=== PATIENT | female | born 1930 | race Caucasian/White ===

== ENCOUNTER 2017-04-25 08:55 | Inpatient (IN) ==
[2017-04-25] MEDS ORDERED: ACETAMINOPHEN 325 MG TABLET PO ONE (09:29)
[2017-04-25] MEDS ORDERED: ONDANSETRON 4 MG/2 ML VIAL IV ONE ×2 (09:29→10:08)
[2017-04-25] MEDS ORDERED: LACTATED RINGERS 1,000 ML IV ONE ×2 (09:30→11:34)
--- NOTE | 2017-04-25 09:37 | Emergency Department Note ---
Female Urogenital HPI - General Chief complaint: Urogenital-Female Stated complaint: Urinary frequency, nausea Time Seen by Provider: 04/25/17 09:22 Source: patient, family Mode of arrival: wheelchair - History of Present Illness HPI Narrative: Patient complains of fever, weakness, urinary symptoms, a little bit of nausea, generally not feeling well. She has had some nausea but no vomiting, denies any diarrhea, denies any abdominal pain or flank pain, she's had a history of urinary tract infections for last 2 years, has been on preventative antibiotics off and on, seems to think it was Cipro, but he was not sure, she's also been on Vesicare and then they switched to generic medication. Has had regular [employer] checkups on a yearly basis, denies abdominal pain but has had some issues with yeast infections, denies vaginal discharge, no diarrhea, no chest pain, no shortness of breath, she denies headache but has had some generalized body aches MD Complaint: dysuria - Related Data Home Medications Medication Instructions Recorded Confirmed cranberry extract 200 mg capsule 200 mg PO QDAY 03/11/17 04/08/17 vitamins A,C,H-irdn-kteqxe 14,320 cap PO QDAY cap 03/11/17 04/08/17 unit-226 mg-200 unit capsule Previous Rx's Medication Instructions Recorded lorazepam 0.5 mg tablet 0.5 mg PO BID PRN #60 tab 10/28/16 levothyroxine 125 mcg tablet 125 mcg PO DAILY #90 tab 01/26/17 simvastatin 20 mg tablet 20 mg PO HS #90 tab 01/26/17 losartan 100 mg tablet 100 mg PO DAILY #90 tab 01/29/17 tolterodine ER 4 mg 4 mg PO QHS #10 cap 03/02/17 capsule,extended release 24 hr cholecalciferol (vitamin D3) 2,000 5,000 unit PO QDAY #90 cap 03/11/17 unit capsule conjugated estrogens 0.625 mg/gram 0.625 mg TOPICAL .QOD #30 g 03/11/17 vaginal cream solifenacin 10 mg tablet 10 mg PO QDAY #30 tab 04/08/17 oxybutynin chloride ER 10 mg 10 mg PO QDAY #30 tab 04/14/17 tablet,extended release 24 hr E2/E3-20/80 1mg/g 0.5 g TOPICAL .QOD #60 g 04/20/17 Allergies Allergy/AdvReac Type Severity Reaction Status Date / Time hydrocodone AdvReac Unknown Nausea Verified 04/25/17 09:02 lisinopril AdvReac Unknown Cough Verified 04/25/17 09:02 pravastatin [From Pravachol] AdvReac Unknown Cramping Verified 04/25/17 09:02 of the Muscles Review of Systems All systems ED: reviewed and negative except as stated. Constitutional: Reports: fever, chills ENT ED: Reports: other (hearing aids). Denies: ear pain Cardiovascular: Reports: dyspnea on exertion. Denies: chest pain, palpitations Respiratory: Denies: cough, hemoptysis Gastrointestinal: Reports: other (History of large abdominal hernia). Denies: abdominal pain Past Medical History - Past Medical History Source: nursing notes reviewed Medical history: Reports: arthritis, diabetes, hyperlipidemia, hypertension, osteoporosis, renal disease, thyroid disease, other (recurrent sinusitis & UTIs) Surgical history ED: Reports: cataract, cholecystectomy, hysterectomy, tonsillectomy, other (mohs on nose) Family history: Reports: no significant family history - Social History smoking status: Never smoker Alcohol use: Reports: None Drug use: Reports: none Physical Exam Limitations: no limitations General appearance: alert, lethargic Head: atraumatic, normocephalic Eye: Present: normal appearance, PERRL, EOMI. Absent: conjunctival injection, nystagmus, periorbital swelling ENT: normal exam, normal oropharynx, mucous membranes moist, normal external ear exam, other (Hearing aids bilaterally) Neck: Present: normal inspection, full ROM, trachea midline Chest: Present: normal inspection, symmetric chest wall rise. Absent: tenderness Respiratory: Present: normal lung sounds bilaterally. Absent: wheezes Cardiovascular: Present: regular rate, normal heart sounds Abdominal: Present: soft, mass, hernia, other (Large hernia right upper quadrant ). Absent: distention, tenderness Rectal: Present: deferred Extremities: Present: normal inspection, full ROM. Absent: tenderness Back: Present: normal inspection, full ROM. Absent: CVA tenderness (R), CVA tenderness (L), muscle spasm Neurological: Present: alert, oriented X3, CN II-XII intact, other (generally weak in all fours). Absent: motor sensory deficit Psychiatric: Present: normal affect Skin: Present: warm, dry, intact. Absent: rash Course Vital Signs Temperature 100.9 F H 04/25/17 08:57 Pulse Rate 92 H 04/25/17 08:57 Pulse Oximetry (%) 96 04/25/17 08:57 Temperature 101.0 F H 04/25/17 10:25 Pulse Rate 53 L 04/25/17 11:55 Respiratory Rate 16 04/25/17 11:55 Blood Pressure 140/53 04/25/17 11:55 Pulse Oximetry (%) 98 04/25/17 11:55 Urogenital-Female - MDM Narrative Medical decision making narrative: Final impression is urinary tract infection, complicated. Associated with general weakness and history of recurrent infections. Plan is IV fluids, observation. We did give her Tylenol and the fever actually went up to 101. We gave her Zofran twice for nausea. Some improvement with that. I spoke with Dr. Ford regarding admission and he will be down to see her. - Lab Data Result diagrams: 04/25/17 09:31 04/25/17 09:31 Lab Results 04/25/17 04/25/17 04/25/17 Range/Units 09:31 09:31 09:31 WBC 6.2 (4.5-11.0) K/mcL RBC 4.08 (4.00-5.20) M/mcL Hgb 12.5 (12.0-15.0) g/dL Hct 36.5 (36.0-48.0) % MCV 89.5 (80.0-100.0) fL MCH 30.6 (26.0-34.0) pg MCHC 34.2 (31.0-36.0) g/dL RDW 14.7 H (11.5-14.5) % Plt Count 174 (140-440) K/mcL MPV 7.5 (7.4-10.4) fL Total Counted 100 Seg Neutrophils % 64 (38-78) % Band Neutrophils % 4 (0-10) % Lymphocytes % 15 (15-49) % Monocytes % (Manual) 15 H (1-12) % Metamyelocytes % 2 H (0-0) % Platelet Estimate Normal (NORMAL) RBC Morphology Normal (NORMAL) VBG Lactic Acid 1.9 (0.5-2.2) mmol/L Sodium 136 (133-145) mmol/L Potassium 4.0 (3.3-5.1) mmol/L Chloride 100 (96-108) mmol/L Carbon Dioxide 20 L (22-30) mmol/L Anion Gap 16.0 (8-16) BUN 19 (8-23) mg/dl Creatinine 1.2 H (0.6-1.1) mg/dl GFR Calculation 41 Glucose 169 H (70-105) mg/dL Calcium 8.8 (8.6-10.4) mg/dl Total Bilirubin 0.5 (0.0-1.0) mg/dL AST 15 (0-37) U/l ALT 10 (0-40) U/l Alkaline Phosphatase 70 (39-117) U/L C-Reactive Protein (0.0-0.8) mg/dl Total Protein 7.1 (5.9-8.4) gm/dL Albumin 4.0 (3.2-5.2) gm/dL Globulin 3.1 (2.2-3.7) gm/dL Albumin/Globulin Ratio 1.3 (1.0-2.3) Urine Color Urine Appearance Urine pH (5.0-9.0) Ur Specific [place] (1.000-1.035) Urine Protein (NEG) mg/dL Urine Glucose (UA) (NEG) mg/dL Urine Ketones (NEG) mg/dL Urine Occult Blood (<0.03) mg/dL Urine Nitrate (NEG) Urine Bilirubin (NEG) mg/dL Urine Urobilinogen (NEG) mg/dL Ur Leukocyte Esterase (NEG) /uL Urine RBC (0-1) /hpf Urine WBC (0-4) /hpf Ur Squamous Epith Cells (0-4) /hpf Urine Bacteria (0) /hpf Urine Mucus (0) /hpf 04/25/17 04/25/17 Range/Units 09:31 09:32 WBC (4.5-11.0) K/mcL RBC (4.00-5.20) M/mcL Hgb (12.0-15.0) g/dL Hct (36.0-48.0) % MCV (80.0-100.0) fL MCH (26.0-34.0) pg MCHC (31.0-36.0) g/dL RDW (11.5-14.5) % Plt Count (140-440) K/mcL MPV (7.4-10.4) fL Total Counted Seg Neutrophils % (38-78) % Band Neutrophils % (0-10) % Lymphocytes % (15-49) % Monocytes % (Manual) (1-12) % Metamyelocytes % (0-0) % Platelet Estimate (NORMAL) RBC Morphology (NORMAL) VBG Lactic Acid (0.5-2.2) mmol/L Sodium (133-145) mmol/L Potassium (3.3-5.1) mmol/L Chloride (96-108) mmol/L Carbon Dioxide (22-30) mmol/L Anion Gap (8-16) BUN (8-23) mg/dl Creatinine (0.6-1.1) mg/dl GFR Calculation Glucose (70-105) mg/dL Calcium (8.6-10.4) mg/dl Total Bilirubin (0.0-1.0) mg/dL AST (0-37) U/l ALT (0-40) U/l Alkaline Phosphatase (39-117) U/L C-Reactive Protein 7.0 H (0.0-0.8) mg/dl Total Protein (5.9-8.4) gm/dL Albumin (3.2-5.2) gm/dL Globulin (2.2-3.7) gm/dL Albumin/Globulin Ratio (1.0-2.3) Urine Color Yellow Urine Appearance Cloudy Urine pH 5.0 (5.0-9.0) Ur Specific [place] 1.014 (1.000-1.035) Urine Protein 100 A (NEG) mg/dL Urine Glucose (UA) Negative (NEG) mg/dL Urine Ketones 5/tr A (NEG) mg/dL Urine Occult Blood >=1.0 A (<0.03) mg/dL Urine Nitrate Pos A (NEG) Urine Bilirubin Neg (NEG) mg/dL Urine Urobilinogen Neg (NEG) mg/dL Ur Leukocyte Esterase 500 A (NEG) /uL Urine RBC > 182 H (0-1) /hpf Urine WBC > 182 H (0-4) /hpf Ur Squamous Epith Cells 9 H (0-4) /hpf Urine Bacteria Many A (0) /hpf Urine Mucus Mod (0) /hpf Disposition Pt seen by TELE TECH/PA only: No Clinical Impression: Urinary tract infection Disposition: Xfer As Outpt/Obs ([facility]) Condition: Fair Referrals: Emmanuel Ulrich MD [Primary Care Provider] -
[2017-04-25] MEDS ORDERED: cefTRIAXone 1 GM VIAL IV ONE (09:40)
[2017-04-25 10:14] LABS: Mean Cell Volume 89.5 fL (80.0-100.0); Mean Corpuscular HGB Conc 34.2 g/dL (31.0-36.0); Mean Corpuscular Hemoglobin 30.6 pg (26.0-34.0); Platelet Count 174 K/mcL (140-440); RBC 4.08 M/mcL (4.00-5.20); Red Cell Distribution Width 14.7 % (11.5-14.5)
[2017-04-25 10:16] LABS: Appearance,Urine CLOUDY; Bacteria,Urine MANY /hpf (0); Bilirubin,Urine NEG (NEG); Color,Urine YELLOW; Glucose,Urine (UA) NEGATIVE (NEG); Leukocyte Esterase,Urine 500 /uL (NEG); Mucus,Urine MOD /hpf (0); Nitrate,Urine POS (NEG); Protein,Urine 100 mg/dL (NEG); Specific Gravity,Urine 1.014 (1.000-1.035); Urine Blood >=1.0 mg/dL (<0.03); Urine RBC > 182 /hpf (0-1); Urine Squamous Epithelial Cell 9 /hpf (0-4); Urine WBC > 182 /hpf (0-4); Urobilinogen,Urine NEG (NEG)
[2017-04-25 10:28] LABS: ALT/SGPT 10 U/l (0-40); Albumin/Globulin Ratio 1.3 (1.0-2.3); Alkaline Phosphatase 70 U/L (39-117); Blood Urea Nitrogen 19 mg/dl (8-23)
[2017-04-25 10:39] LABS: Band Neutrophils % 4 % (0-10); Lymphocytes % 15 % (15-49); Metamyelocytes % 2 % (0-0); Monocytes % (Manual) 15 % (1-12); Platelet Estimate NORMAL (NORMAL); RBC Morphology NORMAL (NORMAL); Segmented Neutrophils % 64 % (38-78)
[2017-04-25] MEDS ORDERED: IBUPROFEN 600 MG TABLET PO ONE (12:32)
--- NOTE | 2017-04-25 12:56 | Internal Med History&Physical ---
Medical - H&P: HPI Patient information: Note initiated : 04/25/17 at 12:47 pm Service Date, if different from initiated Date: [] Patient: Lela Pressley a 86 y/o F admitted on for Urinary frequency, nausea. Chief Complaint: [] History of present illness: Ms. Pressley is a 86 year old Female with h/o overactive bladder, who has been having trouble with her bladder symptoms for over 2 yrs presents to the ER today after not feeling well since yesterday. According to the patient/ patients the patient has not been doing well from the bladder prospective x 2 yrs, she has tried various medications, and also has been following up with Urology. Over the last few months, she has tried multiple medications for her overactive bladder, anticholinergic/ estrogen to see if that helps. She has to go to the bathroom quite frequently. The patient since yesterday notes she has not been feeling so well, her checked her temperature and it as 101.9 last night. This am she felt as if she was going to ? because of her illness and therefore presented to the ER. In the ER her son, daughter and were present. In ther ER she was noted to be febrile, her labs normal, with mild CKD, the patient otherwise had normal wbc, normal lactic acid, She was dizzy on ambulation and one episode of nausea. Her ua was suggestive of infection, and she remained febrile and weak, She was therefore admitted to the hospital for further management, Blood cx, urine cx, sent, rocephin given The patient notes she has not had any imaging of the bladder or pelvis over last 2 years, she had no headache, no runny nose or watery eyes, no sick contact ,s she had some nausea, no vomiting, no chest pain, no shortness of breath. She has chr edema. She denies any joint, or skin issues. The patient urology notes reviewed, her previous urine cultures have been clear , and her urine analysis done point of care in [facility] also has been normal. In the ER the patient HR was noted to be low in the 50's, but was sinus on tele monitor, she had new oxygen requirement, while sleeping she desatruated to 88% which came up quickly as she was given some oxygen She wishes to be full code All systems: reviewed and no additional remarkable complaints except as stated ( as per HPI) Medical - H&P: [facility] Medical history: Medical History (Last Reviewed 04/08/17 @ 08:45 by SOLEDAD Emmanuel) Acute sinusitis (Acute) Chronic kidney disease, stage III (moderate) (Chronic) Frequency of urination (Chronic) Dysuria (Chronic) Vaginal dryness (Chronic) Urinary tract infection (Chronic) Sinusitis (Chronic) Encounter for removal of sutures (Chronic) Muscle strain of left lower extremity (Chronic) Metabolic Syndrome X (Chronic) Sinusitis (Resolved) Knee strain (Chronic) Sinusitis (Resolved) Right foot strain (Chronic) Diabetes mellitus type 2 in obese (Chronic) Diabetes mellitus type 2 in nonobese (Chronic) Vitreous degeneration (Chronic 03/08/14) Vitamin D deficiency (Chronic) Candidal vaginitis (Chronic 11/10/13) Pseudophakia (Chronic) Peripheral vascular disease (Chronic) Osteoporosis (Chronic 07/26/14) Panic disorder (Chronic 06/09/12) Osteoarthritis (Chronic) Osteopenia (Chronic 03/21/13) Onychomycosis (Chronic 07/26/14) Obesity (Chronic) Personal history of malignant melanoma of skin (Chronic) Macular degeneration (Chronic) Keratoconjunctivitis sicca, not specified as Sjogren's (Chronic) Hypothyroidism (Chronic) Dyslipidemia (Chronic) Hypercalcemia (Chronic) Essential hypertension (Chronic) Ventral hernia (Chronic) Gout (Chronic) Dysmetabolic syndrome X (Chronic) 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) Costochondritis (Chronic 09/16/12) Corneal dystrophy (Chronic) Chronic kidney disease, stage III (moderate) (Chronic) Blepharitis (Chronic 09/11/14) Basal cell carcinoma of skin of other parts of face (Chronic) 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) Anxiety (Chronic) Anemia (Chronic) Maxillary sinusitis, acute (Resolved) Sinusitis (Resolved) Contusion (Resolved) Fracture of fifth metatarsal bone of left foot (Resolved) Acute sinusitis (Resolved 09/12/14) Surgical history: Past Surgical History (Last Reviewed 04/08/17 @ 08:46 by SOLEDAD Emmanuel) History of cataract surgery (Resolved) History of cholecystectomy (Resolved) History of colonoscopy (Resolved) History of esophagogastroduodenoscopy (EGD) (Resolved) History of hysterectomy (Resolved) History of salpingo-oophorectomy (Resolved) History of tonsillectomy (Resolved) Status post Mohs surgery for basal cell carcinoma (Resolved 06/02/16) Pertinent family history: Family History (Last Reviewed 04/08/17 @ 08:46 by SOLEDAD Emmanuel) Father Coronary artery disease Other Breast cancer Diabetes Kidney stones Medical - H&P: Meds Home Medications Medication Instructions Recorded Confirmed Type Biest 1 mg TD 3XW 04/25/17 History LORazepam [Ativan] 0.5 mg PO BID PRN 04/25/17 04/25/17 History Levothyroxine [Synthroid] 125 mcg PO DAILY 04/25/17 04/25/17 History Losartan [Cozaar] 100 mg PO DAILY 04/25/17 04/25/17 History Oxybutynin Chloride [Oxybutynin 10 mg PO DAILY 04/25/17 04/25/17 History Chloride ER] Simvastatin [Zocor] 20 mg PO HS 04/25/17 04/25/17 History Allergies Allergy/AdvReac Type Severity Reaction Status Date / Time hydrocodone AdvReac Unknown Nausea Verified 04/25/17 09:02 lisinopril AdvReac Unknown Cough Verified 04/25/17 09:02 pravastatin [From Pravachol] AdvReac Unknown Cramping Verified 04/25/17 09:02 of the Muscles Medical - H&P: Exam - Constitutional Vitals: Temp Pulse Resp BP Pulse Ox 101.0 F H 55 L 18 134/51 98 04/25/17 10:25 04/25/17 12:01 04/25/17 12:01 04/25/17 12:01 04/25/17 12:01 Exam: GENERAL: The patient is a well-developed, well-nourished in no apparent distress. Is alert and oriented x3. VITAL SIGNS: Reviewed and as noted elsewhere. HEENT: Head is normocephalic and atraumatic. Extraocular muscles are intact. Pupils are equal, round, and reactive to light. Nares appeared normal. Mouth appears any without lesions. Mucous membranes are moist. NECK: Normal to inspection, Supple, No lymphadenopathy or thyromegaly. LUNGS: Air entry equal on both sides, no wheezing, crackles or rhonchi noted. No accessory muscles of respiration HEART: Regular rate and rhythm normal, S1 and S2 heard, no Gallop, S3 or Rub Noted, No Gross murmur heard. ABDOMEN: Soft, nontender, and nondistended. Positive bowel sounds. No hepatosplenomegaly was noted. No flank tenderness, right upper quadrant swelling , soft non tender, noted, not easily reducible. EXTREMITIES: No cyanosis, clubbing, rash, , edema ++ noted. NEUROLOGIC: Cranial nerves II through XII are grossly intact. Motor and Sensory System Grossly Intact PSYCHIATRIC: Normal affect, Normal Mood. Appropriate Behavior. SKIN: No ulceration or wounds noted, No jaundice, No rash noted. Medical - H&P: Reslt - Labs CBC & Chem 7: 04/25/17 09:31 04/25/17 09:31 Labs: Short CBC 04/25/17 Range/Units 09:31 WBC 6.2 (4.5-11.0) K/mcL Hgb 12.5 (12.0-15.0) g/dL Hct 36.5 (36.0-48.0) % Plt Count 174 (140-440) K/mcL BMP 04/25/17 09:31 Sodium 136 Potassium 4.0 Chloride 100 Carbon Dioxide 20 L BUN 19 Creatinine 1.2 H Glucose 169 H Calcium 8.8 Liver Function 04/25/17 Range/Units 09:31 Total Bilirubin 0.5 (0.0-1.0) mg/dL AST 15 (0-37) U/l ALT 10 (0-40) U/l Alkaline Phosphatase 70 (39-117) U/L Albumin 4.0 (3.2-5.2) gm/dL Urine 04/25/17 Range/Units 09:32 Urine Color Yellow Urine Appearance Cloudy Urine pH 5.0 (5.0-9.0) Ur Specific [place] 1.014 (1.000-1.035) Urine Protein 100 A (NEG) mg/dL Urine Glucose (UA) Negative (NEG) mg/dL Medical - H&P: A/P - Narrative A/P Narrative: A/P Urinary tract infection: IV rocephin for now, previous cultures 2 yrs ago has enterococcus, but rest have been clear, will await microbiology Fever: Due to UTI, tyenol given, monitor. Overactive Bladder: The patient has been following with urology, on anti cholinergics as well as estrogen for atrophic vaginitis. continue same, In light of recurrent symptoms which are difficult to control, h/o previous GI Surgeries, as well as ruq mass/ non reducible hernia, will get CT Abdomen and pelvis to see if there is any other underlying pathology to explain the patients symptoms. HTN: BP stable, no e/o sepsis or septic shock, normal bp, normal lactate, resume home bp medications Right upper quadrant swelling: hernia, non tender, secondary to Gall bladder surgery? monitor. Hypothyroidism: on levothyroxine, check tsh in light of low hr despite pt having fever, Hypoxia: check chest x ray, bnp. CKD stage 3, creat is 1.2, which is at baseline. Pt is receiving IV fluids prior to CT Scan, will continue with fluids if patient x ray is neg for chf. DVT hep sq Regular diet Full code Social History - Social History household members: spouse housing: house lives independently: Yes marital status: occupation: self employed - Tobacco smoking status: Never smoker - Alcohol alcohol intake frequency: does not drink - Substance use substance use type: does not use
[2017-04-25] MEDS ORDERED: IOPAMIDOL 100 ML BOTTLE IJ ONE (13:08)
[2017-04-25] MEDS ORDERED: oxyCODONE HCL 5 MG TABLET PO PRN (13:20)
[2017-04-25] MEDS ORDERED: ALBUTEROL SULFATE 2.5 MG/3 ML NEBULIZER NEB PRN (13:20)
[2017-04-25] MEDS ORDERED: ACETAMINOPHEN 325 MG TABLET PO PRN (13:20)
[2017-04-25] MEDS ORDERED: LORazepam 0.5 MG TABLET PO PRN ×2 (13:20→14:45)
[2017-04-25] MEDS ORDERED: traZODone HCL 50 MG TABLET PO PRN (13:20)
[2017-04-25] MEDS ORDERED: NALOXONE HCL 0.4 MG/ML VIAL IV PRN (13:20)
[2017-04-25] MEDS ORDERED: ONDANSETRON 4 MG/2 ML VIAL IV PRN (13:20)
[2017-04-25] MEDS: 0.9 % SODIUM CHLORIDE 10 ML SYRINGE IV SCH ×2 (14:25→20:35)
--- NOTE | 2017-04-25 17:29 | Cat Scan Report ---
CLINICAL INFORMATION: Abdominal pain, nausea and vomiting COMPARISON: Abdominal MRI from 02/22/2010. TECHNIQUE: Following enteric contrast, 80 cc of Isovue-300 were injected intravenously, and 60 seconds later, 0.625 mm helical slices were obtained from the mid heart through the subtrochanteric regions. Following reconstruction, 2.5 mm sagittal, coronal and axial reformatted images were processed and reviewed at bone, lung and soft tissue windows. Five minutes later, 0.625 mm helical slices were obtained from the mid heart through the kidneys and viewed at soft tissue windows.The exam was performed using radiation dose optimization techniques including, but not limited to, automated exposure control, adjustment of the mA and/or kV according to patient size and use of iterative reconstruction technique. FINDINGS: Lung bases show chronic bronchitis and scattered scarring. No effusion. The heart is mildly enlarged with extremely heavy calcification in the region of the mitral valve. Small hiatal hernia again noted. Images through the abdomen show mild fatty change within the liver with more concentrated fat in the christina hepatis region. The gallbladder is surgically absent. There is a 3.8 cm periampullary diverticula which extrinsically compresses the intrapancreatic common bile duct resulting in mild dilatation of common bile duct 10 mm. No evidence of stone in the duct. Pancreas is unremarkable. Both adrenal glands, spleen, right kidney and aorta , including aortic branches, are normal in size, configuration and attenuation without focal lesion. There is mild left hydronephrosis ostensibly due to a UPJ stricture. There is also mild soft tissue stranding in the perirenal soft tissues. The transitional epithelium in the left upper collecting system is moderately thickened compatible with pyelonephritis. No stones are identified. The ureter, distal to the UPJ, is normal in caliber. The right upper collecting system and ureter are normal. There is moderate diffuse thickening of the urinary bladder wall with inflammation in the perivesical soft tissues suggesting cystitis. Small of free fluid noted in the deep true pelvis. Multiple sigmoid diverticuli are noted. There is a 22 mm sessile lipoma in the mid transverse colon, but the remaining colon is unremarkable. Appendix is normal. Small bowel and stomach are grossly normal. Bone windows show only degenerative changes in the lumbar spine. There is a 10 cm ventral hernia in the epigastric region of the abdominal wall consisting only mesenteric fat. A small 18 mm periumbilical hernia also consists of mesenteric fat. The appear to be stable from the old study IMPRESSION: 1. Mild left hydronephrosis ostensibly due to a UPJ stricture as a result of fibrosis or inflammation in the perirenal soft tissues. The transitional epithelium of the left upper collecting system is thickened and there is inflammation of the perinephric fat suggesting pyelonephritis. 2. Moderate diffuse wall thickening of the urinary bladder with inflammation in the perivesical fat compatible with severe cystitis 3. 10 cm ventral hernia in the epigastric region containing only mesenteric fat - stable. There is a 18 mm periumbilical hernia also consisting only mesenteric fat - both are stable from prior MRI. 4. 3.8 cm periampullary diverticulum projecting into the pancreatic head and extremely impinging the common bile duct resulting in mild duct dilatation - 11 mm. This is unchanged 5. Small hiatal hernia Interpreted and Authenticated by: Anderson Douglas 04/25/17
--- NOTE | 2017-04-25 17:32 | XRay Report ---
CLINICAL INFORMATION: Hypoxia COMPARISON: 06/16/2011 FINDINGS: Heart is mildly enlarged. Pulmonary vessels are slightly congested compared to previous study there a few Natanael B lines in the lateral bases suggesting borderline CHF or volume overload. There are no infiltrates or effusions. Chronic bronchitis again noted IMPRESSION: Mild CHF Interpreted and Authenticated by: Anderson Douglas 04/25/17
[2017-04-25] MEDS ORDERED: HEPARIN 5,000 UNIT/ML VIAL SQ SCH (21:00)
[2017-04-25] MEDS ORDERED: FAMOTIDINE/PF 20 MG/2 ML VIAL IV SCH (21:00)
[2017-04-25] MEDS ORDERED: SIMVASTATIN 20 MG TABLET PO SCH (21:00)
[2017-04-26] MEDS: 0.9 % SODIUM CHLORIDE 10 ML SYRINGE IV SCH ×3 (05:17→21:17)
[2017-04-26 05:37] LABS: Basophils # (Auto) 0 K/mcL (0.0-0.3); Basophils % (Auto) 0.2 % (0.0-2.0); Eosinophils # (Auto) 0 K/mcL (0.0-0.7); Eosinophils % (Auto) 0.6 % (0.0-7.0); Lymphocytes # (Auto) 0.7 K/mcL (1.5-4.8); Lymphocytes % (Auto) 10.2 % (15.5-49.0); Mean Cell Volume 90.1 fL (80.0-100.0); Mean Corpuscular Hemoglobin 30.6 pg (26.0-34.0); Monocytes # (Auto) 0.9 K/mcL (0.1-0.9); Platelet Count 145 K/mcL (140-440); Red Cell Distribution Width 15.3 % (11.5-14.5)
[2017-04-26] MEDS ORDERED: ASPIRIN 81 MG TAB.CHEW CHEWED ONE (05:52)
[2017-04-26] MEDS ORDERED: NITROGLYCERIN 0.4 MG TAB.SUBL SL ONE ×2 (05:53→06:02)
[2017-04-26] MEDS ORDERED: ASPIRIN 81 MG TAB.CHEW ONE (06:02)
[2017-04-26 06:04] LABS: ALT/SGPT 8 U/l (0-40); Albumin/Globulin Ratio 1.1 (1.0-2.3); Alkaline Phosphatase 65 U/L (39-117); Bilirubin,Direct < 0.2 mg/dL (0.0-0.3); Blood Urea Nitrogen 19 mg/dl (8-23); Gamma Glutamyl Transpeptidase 13 U/L (5-36); Magnesium 1.7 mg/dL (1.6-2.5); Uric Acid 5.6 mg/dL (2.5-8.0)
[2017-04-26] MEDS ORDERED: LEVOTHYROXINE 125 MCG TABLET PO SCH (07:30)
--- NOTE | 2017-04-26 07:33 | XRay Report ---
CLINICAL INFORMATION: Chest pain - follow-up mild CHF COMPARISON: Yesterday's study 04/25/2017. FINDINGS: Heart is borderline enlarged but unchanged. Mediastinum is unremarkable. Tortuous brachycephalic artery has been stable over many exams. Pulmonary vessels appear normal on today's study no definite edema. There is mild airspace disease developing in the right base - likely atelectasis IMPRESSION: No evidence CHF. Mild airspace disease in the right base - likely atelectasis Interpreted and Authenticated by: Anderson Douglas 04/26/17
[2017-04-26] MEDS ORDERED: ALBUTEROL SULFATE 2.5 MG/3 ML NEBULIZER NEB PRN (08:11)
[2017-04-26] MEDS ORDERED: LORazepam 0.5 MG TABLET PO PRN (08:11)
[2017-04-26] MEDS ORDERED: ACETAMINOPHEN 325 MG TABLET PO PRN (08:11)
[2017-04-26] MEDS ORDERED: ONDANSETRON 4 MG/2 ML VIAL IV PRN (08:11)
[2017-04-26] MEDS ORDERED: FUROSEMIDE 40 MG/4 ML VIAL IV ONE (08:11)
[2017-04-26] MEDS ORDERED: oxyCODONE HCL 5 MG TABLET PO PRN (08:11)
[2017-04-26] MEDS ORDERED: traZODone HCL 50 MG TABLET PO PRN (08:11)
[2017-04-26] MEDS ORDERED: NALOXONE HCL 0.4 MG/ML VIAL IV PRN (08:11)
[2017-04-26] MEDS ORDERED: cefTRIAXone 1 GM VIAL IV SCH (09:00)
[2017-04-26] MEDS ORDERED: LOSARTAN 50 MG TABLET PO SCH ×2 (09:00)
[2017-04-26] MEDS ORDERED: OXYBUTYNIN CHLORIDE 5 MG TAB.XL.24H PO SCH (09:00)
--- NOTE | 2017-04-26 10:02 | Internal Med Progress Note ---
Medical - PN: Subj Patient information: Note initiated : 04/26/17 at 9:57 am Service Date, if different from initiated Date: [] Patient: Lela Pressley a 86 y/o F admitted on 04/25/17 for Urinary frequency, nausea. Chief Complaint: [] Interval history: Ms. Pressley is a 86 year old Female with h/o overactive bladder, who has been having trouble with her bladder symptoms for over 2 yrs presents to the ER today after not feeling well since yesterday. According to the patient/ patients the patient has not been doing well from the bladder prospective x 2 yrs, she has tried various medications, and also has been following up with Urology. Over the last few months, she has tried multiple medications for her overactive bladder, anticholinergic/ estrogen to see if that helps. She has to go to the bathroom quite frequently. The patient since yesterday notes she has not been feeling so well, her checked her temperature and it as 101.9 last night. This am she felt as if she was going to ? because of her illness and therefore presented to the ER. In the ER her son, daughter and were present. In ther ER she was noted to be febrile, her labs normal, with mild CKD, the patient otherwise had normal wbc, normal lactic acid, She was dizzy on ambulation and one episode of nausea. Her ua was suggestive of infection, and she remained febrile and weak, She was therefore admitted to the hospital for further management, Blood cx, urine cx, sent, rocephin given The patient notes she has not had any imaging of the bladder or pelvis over last 2 years, she had no headache, no runny nose or watery eyes, no sick contact ,s she had some nausea, no vomiting, no chest pain, no shortness of breath. She has chr edema. She denies any joint, or skin issues. The patient urology notes reviewed, her previous urine cultures have been clear , and her urine analysis done point of care in [facility] also has been normal. In the ER the patient HR was noted to be low in the 50's, but was sinus on tele monitor, she had new oxygen requirement, while sleeping she desatruated to 88% which came up quickly as she was given some oxygen She wishes to be full code Apr 26 Patient seen examined Overnight events noted, patients x ray chest was interpreted as mild CHF, CT showed pyelonephritis/ mild hydro on left, no stone, pt already follows with urology. The patient this AM, had chest pain in the retrosternal epigastric region, dull ache, no other symptoms, no sob, no nausa,no sweating no dizziness. She was given ASA, placed on oxygen. EKG done did not show any acute st wave changes The patients Chest x Ray showed right sided increased opacities in the perihilar and right lower lobe region, she also has increased vascular markings on the right upper pulmonary artery.. On exam she has increased right sided crackles up to mid level. The patient had elevated bnp on labs, Although the X ray is interpreted as no chf, she clearly has increased fluid on the x ray, although not bilaterally as she was laying on the right side which may have confounded the radiologist interpretation. Patients CP resolved with ASA, before administration of NTG Patient moved to tele status, in light of her pyelonephritis, will switch her to inpatient status. She will get an Echo and IV lasix, Trend troponins. Plan of care reviewed with as well as patient. Pertinent ROS: Denies headache, dizziness Present chest pain, No palpitations Denies cough or shortness of breath Denies abdominal pain, nausea or vomiting. - Constitutional Vitals: Vital Signs Temp Pulse Resp BP Pulse Ox 99.9 F H 84 20 152/80 94 04/26/17 03:43 04/26/17 06:01 04/26/17 06:01 04/26/17 06:01 04/26/17 06:01 Period Temp Pulse Resp BP Sys/Pearson Pulse Ox Last 24 Hr 97.8 F-101.0 F 53-84 16-24 126-162/51-80 89-98 Intake and Output 04/25/17 04/26/17 04/26/17 21:59 05:59 13:59 Intake Total 835 / 835 50 / 50 Output Total 75 / 75 600 / 600 475 / 475 Balance 760 / 760 -550 / -550 -475 / -475 Weight 188 lb Intake & Output: Intake & Output 04/25/17 04/26/17 04/26/17 21:59 05:59 13:59 Intake Total 835 / 835 50 / 50 Output Total 75 / 75 600 / 600 475 / 475 Balance 760 / 760 -550 / -550 -475 / -475 Weight 188 lb Intake: Oral 835 / 835 50 / 50 Output: Void Amount 75 / 75 600 / 600 475 / 475 Other: Meal Breakfast Percent of Meal Consumed Refused # Voids 1 1 2 # Bowel Movements 0 Exam: Constitutional; Afebrile, cooperative, alert, not in distress. Eyes- No icterus, , No periorbital swelling Ears- Ext ear normal, hearing normal to conversation. Neck- Midline trachea, supple Respiratory system: Air Entry equal on both sides, Right basilar crackles, upto mid lung, left mild crackles at base. CVS- Rate rhythm regular, S1,S2 heard, no gallop, no rub. Abdomen- Soft nontender abdomen, no organomegaly, no tenderness, no guarding or rigidity, PRODUCTION SUPPORT ANALYST- AOOx3, moving all extremities, no gross focal deficit noted. Medical - PN: Obj Da - Labs CBC & Chem 7: 04/26/17 04:12 04/26/17 04:12 Labs: Abnormal Lab Results 04/26/17 04/26/17 04/25/17 04:12 04:12 09:32 RBC 3.60 L Hgb 11.0 L Hct 32.4 L RDW 15.3 H MPV 7.3 L Lymph % (Auto) 10.2 L Page % (Auto) 13.0 H Lymph # (Auto) 0.7 L Monocytes % (Manual) Metamyelocytes % Carbon Dioxide Creatinine Glucose 115 H Calcium 8.1 L Phosphorus 1.9 L C-Reactive Protein NT-Pro-B Natriuret Pep Total Protein 5.7 L Albumin 3.0 L Triglycerides 151 H Urine Protein 100 A Urine Ketones 5/tr A Urine Occult Blood >=1.0 A Urine Nitrate Pos A Ur Leukocyte Esterase 500 A Urine RBC > 182 H Urine WBC > 182 H Ur Squamous Epith Cells 9 H Urine Bacteria Many A 04/25/17 04/25/17 04/25/17 09:31 09:31 09:31 RBC Hgb Hct RDW MPV Lymph % (Auto) Page % (Auto) Lymph # (Auto) Monocytes % (Manual) Metamyelocytes % Carbon Dioxide 20 L Creatinine 1.2 H Glucose 169 H Calcium Phosphorus C-Reactive Protein 7.0 H NT-Pro-B Natriuret Pep 4411.0 H Total Protein Albumin Triglycerides Urine Protein Urine Ketones Urine Occult Blood Urine Nitrate Ur Leukocyte Esterase Urine RBC Urine WBC Ur Squamous Epith Cells Urine Bacteria 04/25/17 09:31 RBC Hgb Hct RDW 14.7 H MPV Lymph % (Auto) Page % (Auto) Lymph # (Auto) Monocytes % (Manual) 15 H Metamyelocytes % 2 H Carbon Dioxide Creatinine Glucose Calcium Phosphorus C-Reactive Protein NT-Pro-B Natriuret Pep Total Protein Albumin Triglycerides Urine Protein Urine Ketones Urine Occult Blood Urine Nitrate Ur Leukocyte Esterase Urine RBC Urine WBC Ur Squamous Epith Cells Urine Bacteria Meds: Medications Acetaminophen (Tylenol) 650 mg PO Q6HP PRN PRN Reason: PAIN/FEVER > 101 Albuterol Sulfate (Ventolin) 2.5 mg NEB Q2HP PRN PRN Reason: Shortness Of Breath Ceftriaxone Sodium (Rocephin) 1 gm IV Q24H [place] Famotidine (Pepcid) 20 mg IV Q12 [place] Heparin Sodium (Porcine) (Heparin) 5,000 unit SQ Q12 [place] Levothyroxine Sodium (Synthroid) 125 mcg PO QAMAC [place] Lorazepam (Ativan) 0.5 mg PO BIDP PRN PRN Reason: Anxiety Losartan Potassium (Cozaar) 100 mg PO DAILY [place] Naloxone HCl (Narcan) 0.1 mg IV Q2MIN PRN PRN Reason: Opiate Reversal Ondansetron HCl (Zofran) 4 mg IV Q6HP PRN PRN Reason: Nausea And Vomiting Oxybutynin Chloride (Ditropan Xl) 10 mg PO DAILY [place] Oxycodone HCl (Roxicodone) 5 mg PO Q4HP PRN PRN Reason: PAIN LEVEL 3-6 Simvastatin (Zocor) 20 mg PO HS [place] Sodium Chloride (Saline Flush) 10 ml IV Q8 [place] Trazodone HCl (Desyrel) 25 mg PO HSP PRN PRN Reason: Insomnia Medical - PN: A/P - Time Spent With Patient Total time spent is greater than 50% in coordination of care (as documented) at patient's floor/unit and/or counseling patient: - Narrative A/P Narrative: A/P Urinary tract infection/ Acute Pyelonephritis,: IV rocephin for now, previous cultures 2 yrs ago has enterococcus, gram neg on urine cx today, blood cx still engative, patient on IV rocephin continue same. Fever: Due to UTI, tyenol given, monitor. Overactive Bladder: The patient has been following with urology, on anti cholinergics as well as estrogen for atrophic vaginitis. continue same, CHF exacerbation: IV lasix x1 today, reassess, get echo Chest pain: no ekg changes, trend troponin, monitor on tele, atypical cp for cardiac disease, as not related to activity, no relation of ntg, no typical pressure like. For now observe on telemetery. HTN: BP stable, no e/o sepsis or septic shock, normal bp, normal lactate, resume home bp medications Right upper quadrant swelling: hernia with mesenteric fat, stable as per CT report. Hypothyroidism: on levothyroxine, TSH wnl Hypoxia: likely secondary to CHF, IV lasix given, echo, monitor on tele CKD stage 3, creat is 1.1, stage 3, stable for now, monitor closely. DVT hep sq Regular diet Full code
[2017-04-26 10:28] LABS: Myoglobin 192 ng/ml (25-58)
[2017-04-26] MEDS: cefTRIAXone 1 GM VIAL IV SCH (11:00)
[2017-04-26] MEDS: HEPARIN 5,000 UNIT/ML VIAL SQ SCH ×2 (13:18→21:16)
[2017-04-26] MEDS: FAMOTIDINE/PF 20 MG/2 ML VIAL IV SCH ×2 (13:19→21:16)
[2017-04-26] MEDS: OXYBUTYNIN CHLORIDE 5 MG TAB.XL.24H PO SCH (13:19)
[2017-04-26] MEDS ORDERED: SIMVASTATIN 20 MG TABLET PO SCH (21:00)
[2017-04-27] MEDS: 0.9 % SODIUM CHLORIDE 10 ML SYRINGE IV SCH ×3 (05:51→20:54)
[2017-04-27 06:06] LABS: Basophils # (Auto) 0 K/mcL (0.0-0.3); Basophils % (Auto) 0.2 % (0.0-2.0); Eosinophils # (Auto) 0 K/mcL (0.0-0.7); Eosinophils % (Auto) 0.6 % (0.0-7.0); Granulocytes % (Auto) 67.8 % (38.0-78.0); Lymphocytes % (Auto) 18.5 % (15.5-49.0); Mean Corpuscular Hemoglobin 30.6 pg (26.0-34.0); Monocytes # (Auto) 0.7 K/mcL (0.1-0.9); Monocytes % (Auto) 12.9 % (1.0-12.0); Platelet Count 145 K/mcL (140-440); RBC 3.47 M/mcL (4.00-5.20); Red Cell Distribution Width 14.9 % (11.5-14.5)
[2017-04-27 06:08] LABS: ALT/SGPT 14 U/l (0-40); Albumin 2.9 gm/dL (3.2-5.2); Alkaline Phosphatase 64 U/L (39-117); Bilirubin,Direct < 0.2 mg/dL (0.0-0.3); Blood Urea Nitrogen 22 mg/dl (8-23); Gamma Glutamyl Transpeptidase 13 U/L (5-36); Magnesium 1.8 mg/dL (1.6-2.5); Uric Acid 6.4 mg/dL (2.5-8.0)
[2017-04-27] MEDS ORDERED: LEVOTHYROXINE 125 MCG TABLET PO SCH (07:30)
[2017-04-27] MEDS: OXYBUTYNIN CHLORIDE 5 MG TAB.XL.24H PO SCH (09:29)
[2017-04-27] MEDS: cefTRIAXone 1 GM VIAL IV SCH (09:29)
[2017-04-27] MEDS: FAMOTIDINE/PF 20 MG/2 ML VIAL IV SCH ×2 (09:29→20:53)
[2017-04-27] MEDS: HEPARIN 5,000 UNIT/ML VIAL SQ SCH ×2 (09:30→20:53)
--- NOTE | 2017-04-27 11:22 | Internal Med Progress Note ---
Medical - PN: Subj Patient information: Note initiated : 04/27/17 at 11:18 am Service Date, if different from initiated Date: [] Patient: Lela Pressley a 86 y/o F admitted on 04/26/17 for Urinary frequency, nausea. Chief Complaint: [] Interval history: Ms. Pressley is a 86 year old Female with h/o overactive bladder, who has been having trouble with her bladder symptoms for over 2 yrs presents to the ER today after not feeling well since yesterday. According to the patient/ patients the patient has not been doing well from the bladder prospective x 2 yrs, she has tried various medications, and also has been following up with Urology. Over the last few months, she has tried multiple medications for her overactive bladder, anticholinergic/ estrogen to see if that helps. She has to go to the bathroom quite frequently. The patient since yesterday notes she has not been feeling so well, her checked her temperature and it as 101.9 last night. This am she felt as if she was going to ? because of her illness and therefore presented to the ER. In the ER her son, daughter and were present. In ther ER she was noted to be febrile, her labs normal, with mild CKD, the patient otherwise had normal wbc, normal lactic acid, She was dizzy on ambulation and one episode of nausea. Her ua was suggestive of infection, and she remained febrile and weak, She was therefore admitted to the hospital for further management, Blood cx, urine cx, sent, rocephin given The patient notes she has not had any imaging of the bladder or pelvis over last 2 years, she had no headache, no runny nose or watery eyes, no sick contact ,s she had some nausea, no vomiting, no chest pain, no shortness of breath. She has chr edema. She denies any joint, or skin issues. The patient urology notes reviewed, her previous urine cultures have been clear , and her urine analysis done point of care in [facility] urology clinic also has been normal. In the ER the patient HR was noted to be low in the 50's, but was sinus on tele monitor, she had new oxygen requirement, while sleeping she desatruated to 88% which came up quickly as she was given some oxygen She wishes to be full code Apr 26 Patient seen examined Overnight events noted, patients x ray chest was interpreted as mild CHF, CT showed pyelonephritis/ mild hydro on left, no stone, pt already follows with urology. The patient this AM, had chest pain in the retrosternal epigastric region, dull ache, no other symptoms, no sob, no nausa,no sweating no dizziness. She was given ASA, placed on oxygen. EKG done did not show any acute st wave changes The patients Chest x Ray showed right sided increased opacities in the perihilar and right lower lobe region, she also has increased vascular markings on the right upper pulmonary artery.. On exam she has increased right sided crackles up to mid level. The patient had elevated bnp on labs, Although the X ray is interpreted as no chf, she clearly has increased fluid on the x ray, although not bilaterally as she was laying on the right side which may have confounded the radiologist interpretation. Patients CP resolved with ASA, before administration of NTG Patient moved to tele status, in light of her pyelonephritis, will switch her to inpatient status. She will get an Echo and IV lasix, Trend troponins. Plan of care reviewed with as well as patient. Apr 27 patient seen examined, by bed side no acute complaints, ovenright had fever of 102, denies any complaints urine cultres is klebsiella, sensitive to rocephin, patient echo neg, trop neg, creat up to 1.3 today, not eating well, hold losartan for now clinically much better, was sitting in chair drinking her ensure. xfer to med surg status d/c home vs snf depending on how she does in AM Pertinent ROS: Denies headache, dizziness Denies chest pain, palpitations Denies cough or shortness of breath Denies abdominal pain, nausea or vomiting. - Constitutional Vitals: Vital Signs Temp Pulse Resp BP Pulse Ox 97.8 F 60 14 134/78 94 04/27/17 04:08 04/27/17 08:00 04/27/17 08:00 04/27/17 08:00 04/27/17 08:00 Period Temp Pulse Resp BP Sys/Pearson Pulse Ox Last 24 Hr 97.8 F-102.0 F 60-70 14-20 130-150/54-78 94-97 Intake and Output 04/26/17 04/27/17 04/27/17 21:59 05:59 13:59 Intake Total 840 / 840 500 / 500 Output Total 850 / 850 400 / 400 500 / 500 Balance -10 / -10 100 / 100 -500 / -500 Weight 190 lb 3 oz Intake & Output: Intake & Output 04/26/17 04/27/17 04/27/17 21:59 05:59 13:59 Intake Total 840 / 840 500 / 500 Output Total 850 / 850 400 / 400 500 / 500 Balance -10 / -10 100 / 100 -500 / -500 Weight 190 lb 3 oz Intake: Oral 840 / 840 500 / 500 Output: Void Amount 850 / 850 400 / 400 250 / 250 Urine/Stool Mix 250 / 250 Other: Meal Dinner Percent of Meal Consumed 100% # Voids 1 # Bowel Movements 0 0 # of times incontinent of 1 Bowels Exam: Constitutional; Afebrile, cooperative, alert, not in distress. Eyes- No icterus, , No periorbital swelling Ears- Ext ear normal, hearing normal to conversation. Neck- Midline trachea, supple Respiratory system: Air Entry equal on both sides, No crackles or wheezing, no rhonchi. CVS- Rate rhythm regular, S1,S2 heard, no gallop, no rub. Abdomen- Soft nontender abdomen, no organomegaly, no tenderness, no guarding or rigidity, ACTUARIAL CONSULTANT- AOOx3, moving all extremities, no gross focal deficit noted. Medical - PN: Obj Da - Labs CBC & Chem 7: 04/27/17 03:44 04/27/17 03:44 Labs: Abnormal Lab Results 04/27/17 04/27/17 04/26/17 03:44 03:44 09:17 RBC 3.47 L Hgb 10.6 L Hct 31.2 L RDW 14.9 H MPV Lymph % (Auto) [place] % (Auto) 12.9 H Lymph # (Auto) 1.0 L Monocytes % (Manual) Metamyelocytes % Carbon Dioxide Creatinine 1.3 H Glucose 135 H Calcium 8.2 L Phosphorus 1.7 L Myoglobin 192 H C-Reactive Protein NT-Pro-B Natriuret Pep Total Protein 5.8 L Albumin 2.9 L Triglycerides 166 H Urine Protein Urine Ketones Urine Occult Blood Urine Nitrate Ur Leukocyte Esterase Urine RBC Urine WBC Ur Squamous Epith Cells Urine Bacteria 04/26/17 04/26/17 04/25/17 04:12 04:12 09:32 RBC 3.60 L Hgb 11.0 L Hct 32.4 L RDW 15.3 H MPV 7.3 L Lymph % (Auto) 10.2 L [place] % (Auto) 13.0 H Lymph # (Auto) 0.7 L Monocytes % (Manual) Metamyelocytes % Carbon Dioxide Creatinine Glucose 115 H Calcium 8.1 L Phosphorus 1.9 L Myoglobin C-Reactive Protein NT-Pro-B Natriuret Pep Total Protein 5.7 L Albumin 3.0 L Triglycerides 151 H Urine Protein 100 A Urine Ketones 5/tr A Urine Occult Blood >=1.0 A Urine Nitrate Pos A Ur Leukocyte Esterase 500 A Urine RBC > 182 H Urine WBC > 182 H Ur Squamous Epith Cells 9 H Urine Bacteria Many A 04/25/17 04/25/17 04/25/17 09:31 09:31 09:31 RBC Hgb Hct RDW MPV Lymph % (Auto) [place] % (Auto) Lymph # (Auto) Monocytes % (Manual) Metamyelocytes % Carbon Dioxide 20 L Creatinine 1.2 H Glucose 169 H Calcium Phosphorus Myoglobin C-Reactive Protein 7.0 H NT-Pro-B Natriuret Pep 4411.0 H Total Protein Albumin Triglycerides Urine Protein Urine Ketones Urine Occult Blood Urine Nitrate Ur Leukocyte Esterase Urine RBC Urine WBC Ur Squamous Epith Cells Urine Bacteria 04/25/17 09:31 RBC Hgb Hct RDW 14.7 H MPV Lymph % (Auto) [place] % (Auto) Lymph # (Auto) Monocytes % (Manual) 15 H Metamyelocytes % 2 H Carbon Dioxide Creatinine Glucose Calcium Phosphorus Myoglobin C-Reactive Protein NT-Pro-B Natriuret Pep Total Protein Albumin Triglycerides Urine Protein Urine Ketones Urine Occult Blood Urine Nitrate Ur Leukocyte Esterase Urine RBC Urine WBC Ur Squamous Epith Cells Urine Bacteria Meds: Medications Acetaminophen (Tylenol) 650 mg PO Q6HP PRN PRN Reason: PAIN/FEVER > 101 Last Admin: 04/26/17 12:39 Dose: 650 mg Albuterol Sulfate (Ventolin) 2.5 mg NEB Q2HP PRN PRN Reason: Shortness Of Breath Ceftriaxone Sodium (Rocephin) 1 gm IV Q24H [place] Last Admin: 04/27/17 09:29 Dose: 1 gm Famotidine (Pepcid) 20 mg IV Q12 [place] Last Admin: 04/27/17 09:29 Dose: 20 mg Heparin Sodium (Porcine) (Heparin) 5,000 unit SQ Q12 [facility] Last Admin: 04/27/17 09:30 Dose: 5,000 unit Levothyroxine Sodium (Synthroid) 125 mcg PO QAMAC [facility] Last Admin: 04/27/17 08:35 Dose: 125 mcg Lorazepam (Ativan) 0.5 mg PO BIDP PRN PRN Reason: Anxiety Last Admin: 04/26/17 19:31 Dose: 0.5 mg Naloxone HCl (Narcan) 0.1 mg IV Q2MIN PRN PRN Reason: Opiate Reversal Ondansetron HCl (Zofran) 4 mg IV Q6HP PRN PRN Reason: Nausea And Vomiting Oxybutynin Chloride (Ditropan Xl) 10 mg PO DAILY [facility] Last Admin: 04/27/17 09:29 Dose: 10 mg Oxycodone HCl (Roxicodone) 5 mg PO Q4HP PRN PRN Reason: PAIN LEVEL 3-6 Simvastatin (Zocor) 20 mg PO HS [facility] Last Admin: 04/26/17 21:17 Dose: 20 mg Sodium Chloride (Saline Flush) 10 ml IV Q8 [facility] Last Admin: 04/27/17 05:51 Dose: 10 ml Trazodone HCl (Desyrel) 25 mg PO HSP PRN PRN Reason: Insomnia Last Admin: 04/26/17 21:16 Dose: 25 mg Medical - PN: A/P - Time Spent With Patient Total time spent is greater than 50% in coordination of care (as documented) at patient's floor/unit and/or counseling patient: - Narrative A/P Narrative: A/P Urinary tract infection/ Acute Pyelonephritis,: IV rocephin for now, klebsiella , sensitive to rocepin. Fever: Due to UTI, tyenol given, afebrile today, but did have fever overngith. Overactive Bladder: The patient has been following with urology, on anti cholinergics as well as estrogen for atrophic vaginitis. continue same, outpatient follow up. Will need to consider alternative agents, dual agents if needed. CHF exacerbation: clinically much better, off oxygen, Chest pain: likely non cardiac. workup neg, resolved. HTN: BP stable, no e/o sepsis or septic shock, normal bp, normal lactate, resume home bp medications, (hold losartan in light of worsening renal function) HALI Creat up to 1.3, hold losartain, monitor renal function. Right upper quadrant swelling: hernia with mesenteric fat, stable as per CT report. Hypothyroidism: on levothyroxine, TSH wnl Hypoxia: resolved. CKD stage 3, creat is 1. 3 today, has baseline ckd stage 3, monitor. . DVT hep sq Regular diet Full code
[2017-04-27] MEDS ORDERED: ALBUTEROL SULFATE 2.5 MG/3 ML NEBULIZER NEB PRN (11:24)
[2017-04-27] MEDS ORDERED: ACETAMINOPHEN 325 MG TABLET PO PRN (11:24)
[2017-04-27] MEDS ORDERED: oxyCODONE HCL 5 MG TABLET PO PRN (11:24)
[2017-04-27] MEDS ORDERED: NALOXONE HCL 0.4 MG/ML VIAL IV PRN (11:24)
[2017-04-27] MEDS ORDERED: ONDANSETRON 4 MG/2 ML VIAL IV PRN (11:24)
[2017-04-27] MEDS ORDERED: LORazepam 0.5 MG TABLET PO PRN (11:24)
[2017-04-27] MEDS ORDERED: traZODone HCL 50 MG TABLET PO PRN (21:00)
[2017-04-27] MEDS ORDERED: SIMVASTATIN 20 MG TABLET PO SCH (21:00)
[2017-04-28 04:57] LABS: Basophils # (Auto) 0 K/mcL (0.0-0.3); Basophils % (Auto) 0.3 % (0.0-2.0); Eosinophils # (Auto) 0.1 K/mcL (0.0-0.7); Eosinophils % (Auto) 2.6 % (0.0-7.0); Granulocytes % (Auto) 57.4 % (38.0-78.0); Lymphocytes # (Auto) 1.1 K/mcL (1.5-4.8); Lymphocytes % (Auto) 28.2 % (15.5-49.0); Mean Corpuscular Hemoglobin 30.3 pg (26.0-34.0); Monocytes # (Auto) 0.4 K/mcL (0.1-0.9); Monocytes % (Auto) 11.5 % (1.0-12.0); Platelet Count 152 K/mcL (140-440); RBC 3.42 M/mcL (4.00-5.20); Red Cell Distribution Width 14.9 % (11.5-14.5)
[2017-04-28 05:26] LABS: ALT/SGPT 47 U/l (0-40); Albumin/Globulin Ratio 1.2 (1.0-2.3); Alkaline Phosphatase 63 U/L (39-117); Bilirubin,Direct < 0.2 mg/dL (0.0-0.3); Blood Urea Nitrogen 25 mg/dl (8-23); Gamma Glutamyl Transpeptidase 14 U/L (5-36); Uric Acid 6.8 mg/dL (2.5-8.0)
[2017-04-28] MEDS: 0.9 % SODIUM CHLORIDE 10 ML SYRINGE IV SCH (07:11)
[2017-04-28] MEDS ORDERED: LEVOTHYROXINE 125 MCG TABLET PO SCH (07:30)
[2017-04-28] MEDS: FAMOTIDINE/PF 20 MG/2 ML VIAL IV SCH (08:46)
[2017-04-28] MEDS: HEPARIN 5,000 UNIT/ML VIAL SQ SCH (08:46)
[2017-04-28] MEDS ORDERED: OXYBUTYNIN CHLORIDE 5 MG TAB.XL.24H PO SCH (09:00)
[2017-04-28] MEDS ORDERED: LOSARTAN 50 MG TABLET PO SCH (09:00)
[2017-04-28] MEDS ORDERED: cefTRIAXone 1 GM VIAL IV SCH (09:00)
--- NOTE | 2017-04-28 10:31 | Discharge Summary ---
Medical - DS: Prov Patient information: Note initiated : 04/28/17 at 10:28 am Service Date, if different from initiated Date: [] Patient: Lela Pressley a 86 y/o F admitted on 04/26/17 for Urinary frequency, nausea. Chief Complaint: [] Date of admission: 04/26/17 07:36 Discharge date: 04/28/17 Primary care physician: Emmanuel Ulrich Admitting clinician: Debi Shafer Consults: 04/25/17 11:36 Consult to Physician [CONS] Stat Comment: Consulting Provider: Debi Shafer Reason For Exam: Physician to Consult Discharging clinician: Debi Shafer Medical - DS: Meds - Discharge Medications Prescriptions: Cephalexin [Keflex] 500 mg PO QID #40 cap Active and Home Medications: Home Medications Biest 1 mg TD 3XW 04/25/17 [History Confirmed 04/25/17 Last Taken 04/24/17] LORazepam [Ativan] 0.5 mg PO BID PRN 04/25/17 [History Confirmed 04/25/17 Last Taken Unknown] Levothyroxine [Synthroid] 125 mcg PO DAILY 04/25/17 [History Confirmed 04/25/17 Last Taken 04/24/17] Losartan [Cozaar] 100 mg PO DAILY 04/25/17 [History Confirmed 04/25/17 Last Taken 04/24/17] Oxybutynin Chloride [Oxybutynin Chloride ER] 10 mg PO DAILY 04/25/17 [History Confirmed 04/25/17 Last Taken 04/24/17] Simvastatin [Zocor] 20 mg PO HS 04/25/17 [History Confirmed 04/25/17 Last Taken 04/24/17] Medical - DS: Hosp Hospital course: Ms. Pressley is a 86 year old Female with h/o overactive bladder, who has been having trouble with her bladder symptoms for over 2 yrs presents to the ER today after not feeling well since yesterday. According to the patient/ patients the patient has not been doing well from the bladder prospective x 2 yrs, she has tried various medications, and also has been following up with Urology. Over the last few months, she has tried multiple medications for her overactive bladder, anticholinergic/ estrogen to see if that helps. She has to go to the bathroom quite frequently. The patient since yesterday notes she has not been feeling so well, her checked her temperature and it as 101.9 last night. This am she felt as if she was going to ? because of her illness and therefore presented to the ER. In ther ER she was noted to be febrile, her labs normal, with mild CKD, the patient otherwise had normal wbc, normal lactic acid, She was dizzy on ambulation and one episode of nausea. Her ua was suggestive of infection, and she remained febrile and weak, She was therefore admitted to the hospital for further management, Blood cx, urine cx, sent, rocephin given The patient urology notes reviewed, her previous urine cultures have been clear , and her urine analysis done point of care in the urology clinic also has been normal. The patient underwent a CT scan of the abdomen, which showed severe cysititis, mild left hydro, with possible stricture in the left lower UPJ unction, no stone identified. The patient does have a urologist and will follow up with him as outpatient. Pyelonephritics: Blood cx was negative, but urine cx is positive for Klebsiella , CT also shows pyelonephritics, Her Klebsiella is hua sensitive, She was treated with rocephin with good response, She will continue with Keflex 500qid for additional 10 days. The patient Had elevated BNP/ and mild CHF during the hospital stay, which resolved with lasix, trop was negative. Echo done during this hospital stay shows normal lv size, mild lvh, hyperdynamic lv, mild dilated la, moderate to severe mitral annular calcification, mild MR, aortic root sclerosis. No changes to her home list is done, she may need diuretic in the future should she develop chf. Given normal LVEF< bp control would be the primary objective The rest of the patient stay was uneventful, the patient at the time of discharge was able to tolerate po diet well, is afebrile and ambulatory with help of PT, she will need ongoing PT at home. No changes are being made in her chronic home medication list. Discharge diagnosis: Pyelonephritis - Time Spent with Patient Total time spent providing and/or coordinating discharge services: Greater than 30 minutes Medical - DS: Exam - Constitutional Vitals: Vital Signs Temp Pulse Pulse Resp BP BP BP 04/28/17 07:58 97.5 F 74 16 157/51 04/28/17 03:48 97.7 F 55 L 18 146/52 04/28/17 00:09 97.7 F 57 L 16 143/52 04/27/17 19:38 98.6 F 54 L 18 146/57 04/27/17 16:00 99.1 F H 54 L 16 123/55 04/27/17 12:00 99.1 F H 64 16 128/71 Pulse Ox 04/28/17 07:58 94 04/28/17 03:48 95 04/28/17 00:09 95 04/27/17 19:38 96 04/27/17 16:00 97 04/27/17 12:00 96 Intake and Output 04/27/17 04/28/17 04/28/17 21:59 05:59 13:59 Intake Total 760 / 760 120 / 120 240 / 240 Output Total 500 / 500 450 / 450 Balance 260 / 260 120 / 120 -210 / -210 Intake: Oral 760 / 760 120 / 120 240 / 240 Output: Void Amount 500 / 500 450 / 450 Other: Meal Dinner Breakfast Percent of Meal Consumed 75% 100% Feeding Ability Assist with Tray Set Up # Voids 3 1 # Bowel Movements 1 Weight 189 lb Additional comments: Constitutional; Afebrile, cooperative, alert, not in distress. Eyes- No icterus, , No periorbital swelling Ears- Ext ear normal, hearing normal to conversation. Neck- Midline trachea, supple Respiratory system: Air Entry equal on both sides, No crackles or wheezing, no rhonchi. CVS- Rate rhythm regular, S1,S2 heard, no gallop, no rub. Abdomen- Soft nontender abdomen, no organomegaly, no tenderness, no guarding or rigidity, INSPECTOR- AOOx3, moving all extremities, no gross focal deficit noted. Medical - DS: Data Labs on day of discharge: Labs from last 24 hours 04/28/17 04/28/17 03:38 03:38 WBC 3.8 L RBC 3.42 L Hgb 10.4 L Hct 30.5 L MCV 89.0 MCH 30.3 MCHC 34.0 RDW 14.9 H Plt Count 152 MPV 7.4 Gran % 57.4 Lymph % (Auto) 28.2 [place] % (Auto) 11.5 Eos % (Auto) 2.6 Baso % (Auto) 0.3 Gran # 2.2 Lymph # (Auto) 1.1 L [place] # (Auto) 0.4 Eos # (Auto) 0.1 Baso # (Auto) 0 Sodium 141 Potassium 3.7 Chloride 106 Carbon Dioxide 23 Anion Gap 12.0 BUN 25 H Creatinine 1.0 GFR Calculation 51 Glucose 167 H Uric Acid 6.8 Calcium 8.6 Phosphorus 2.2 L Magnesium 2.0 Total Bilirubin 0.2 Direct Bilirubin < 0.2 GGT 14 AST 55 H ALT 47 H Alkaline Phosphatase 63 Lactate Dehydrogenase 203 Total Protein 5.6 L Albumin 3.0 L Globulin 2.6 Albumin/Globulin Ratio 1.2 Triglycerides 169 H Preliminary micro results at discharge 04/25/17 09:53 Blood Culture - Preliminary Blood 04/25/17 09:55 Blood Culture - Preliminary Blood Medical - DS: A/P - Patient/Caregiver Discharge Instructions Activity: as per physical therapy, increase activity as tolerated Diet: Regular Diet Additional Instructions: You were admitted to the hospital for Infection of your bladder/ Kidneys Please take Antibiotics for additional 10 days, Cephalexin 500mg four times a day your CT scan showed mild obstruction on the left side, please review this with your urologist FOllow up with Urology in 1 week Follow up with PCP in 1-2 weeks Go to the ER if worsening symptoms or any other new concerns. No changes are being made in your chronic home medication list. Prescriptions: Cephalexin [Keflex] 500 mg PO QID #40 cap - Follow up Plan Follow up with: Emmanuel Ulrich MD [Primary Care Provider] - Disposition: Home Health Service Prognosis: Fair Rehab Potential: Fair I certify that the patient requires SNF services: No Overall status at discharge: patient is progressing back to baseline
== END 2017-04-28 13:15 | disposition home health service (06) | DRG 690 ==
LOC: ED 08:55 → MEDSUR 08:55 → ICU 04-26 07:35
PROVIDERS: ADMIT Internal Medicine; ATTEND Internal Medicine

== ENCOUNTER 2018-08-22 07:54 | Inpatient (IN) ==
--- NOTE | 2018-08-22 08:25 | Emergency Department Note ---
Fall HPI - General Chief Complaint: Weakness Stated Complaint: Multiple falls, weakness Time Seen by Provider: 08/22/18 08:23 Source: family Mode of arrival: wheelchair - History of Present Illness HPI Narrative: Patient diagnosis having influenza 2 weeks ago. Started on Tamiflu, took a full course of Tamiflu ever since then has been weak and falling at home. She fell twice last night complaining of pain to the left lateral rib area also a little bit to the right lower back area. She was seen at [facility] twice, was thought to be hypotensive, they stopped her blood pressure medications as her blood pressure was too low. She has not been eating or drinking a lot, still lives by herself, her is up at [facility]. She is here with her son at this time who checked on her this morning after she had fallen twice last night. Mainly is complaining of left-sided rib pain, hurts to take a deep breath. Still is coughing, mainly nonproductive cough, no recent fevers chills, poor appetite but denies abdominal pain. No nausea no vomiting or diarrhea. - Related Data Home Medications Medication Instructions Recorded Confirmed aspirin 81 mg tablet,delayed 81 mg PO QDAY 06/26/17 08/22/18 release cholecalciferol (vitamin D3) 5,000 5,000 unit PO QDAY 02/08/18 08/22/18 unit capsule vitamins A,C,S-qlxw-mniwil 14,320 1 cap PO BID 02/08/18 08/22/18 unit-226 mg-200 unit capsule Previous Rx's Medication Instructions Recorded loratadine 10 mg tablet 10 mg PO QDAY PRN #30 tab 10/01/17 D-Mannose powder or caps 2,000 mg PO .Daily #1 unit 12/09/17 carvedilol 3.125 mg tablet 3.125 mg PO BID #180 tab 04/15/18 levothyroxine 125 mcg tablet 125 mcg PO DAILY #90 tab 04/15/18 losartan 100 mg tablet 100 mg PO DAILY #90 tab 04/15/18 oxybutynin chloride ER 10 mg 10 mg PO QDAY #90 tab 04/15/18 tablet,extended release 24 hr simvastatin 20 mg tablet 20 mg PO HS #90 tab 04/15/18 hydroxyzine HCl 10 mg tablet 10 mg PO QHS PRN #30 tab MDD OAB 05/11/18 lorazepam 0.5 mg tablet 0.5 mg PO BID PRN #60 tab 06/29/18 imipramine 10 mg tablet See Rx Instructions PO BID 30 Days 08/04/18 #0 tab E2-E3 - 1 Mg per gram See Rx Instructions .ROUTE 08/05/18 .COMPLEX #60 g MDD recurrent UTI Allergies Allergy/AdvReac Type Severity Reaction Status Date / Time pravastatin [From Pravachol] AdvReac Intermediate Cramping Verified 08/22/18 08:03 of the Muscles hydrocodone AdvReac Mild Nausea Verified 08/22/18 08:03 lisinopril AdvReac Mild Cough Verified 08/22/18 08:03 Review of Systems Review of Systems: Denies headache, fell hit her head 2 weeks ago, not on blood thinners. All systems ED: reviewed and negative except as stated. Constitutional: Reports: sweats, other (recent influenza). Denies: fever, chil ls Cardiovascular: Reports: chest pain. Denies: palpitations Respiratory: Denies: shortness of breath Gastrointestinal: Denies: abdominal pain, nausea, vomiting Musculoskeletal: Reports: back pain Neurological: Reports: weakness. Denies: headache, confusion Fall PMH - Past Medical History Attestation: Yes: The following information was validated with the patient. Medical history: Reports: arthritis, DM, hyperlipidemia, hypertension, osteoporosis, renal disease, thyroid disease, other Surgical history ED: Reports: non-contributory - Social History smoking status: Never smoker Alcohol use: Reports: None Drug use: Reports: none Physical Exam Limitations: no limitations General appearance: alert, in no apparent distress Head: atraumatic, normocephalic, other (small bruise which is old to the left forehead, no significant swelling.) Eye: Present: normal appearance, PERRL, EOMI. Absent: conjunctival injection ENT: normal exam, mucous membranes dry, TM's normal bilaterally, normal external ear exam Neck: Present: normal inspection, full ROM Chest: Present: normal inspection, symmetric chest wall rise, tenderness, other (discomfort to palpation in the left parasternal area and left anterior ribs). Absent: rash, abscess Respiratory: Present: normal lung sounds bilaterally. Absent: respiratory distress, rales/crackles, wheezes, accessory muscle use Cardiovascular: Present: regular rate, normal rhythm, normal heart sounds Abdominal: Present: soft, normal bowel sounds. Absent: distention, tenderness, guarding Extremities: Present: normal inspection Back: Present: normal inspection, muscle spasm, paraspinal tenderness, other (tender right lower lumbar region.). Absent: CVA tenderness (R), CVA tenderness (L) Neurological: Present: alert, oriented X3, CN II-XII intact, other (needs assistance with walking, walks with a walker.) Psychiatric: Present: flat affect Skin: Present: warm, dry, normal color. Absent: cyanosis, diaphoresis, pallor Course - Reevaluation(s) Reevaluation #1: X-ray not showing any fracture of the shoulder, she does however have a fractured rib, rib #5 on the left side, mid axillary line. I do not see any obvious pneumothorax or hemothorax. X-ray of the pelvis is negative for fracture. Patient signed out to Dr. moctezuma 9 AM. Vital Signs Temperature 97.7 F 08/22/18 07:55 Pulse Rate 75 08/22/18 07:55 Respiratory Rate 16 08/22/18 07:55 Blood Pressure 159/68 08/22/18 07:55 Pulse Oximetry (%) 100 08/22/18 07:55 Temperature 97.7 F 08/22/18 07:55 Pulse Rate 73 08/22/18 08:03 Respiratory Rate 21 08/22/18 08:28 Blood Pressure 111/75 08/22/18 08:28 Pulse Oximetry (%) 100 08/22/18 08:03 Fall - Lab Data Result diagrams: 08/22/18 08:12 08/22/18 08:12 Disposition Pt seen by INSURANCE LICENSING SUPERVISOR/PA only: No Clinical Impression: Rib fracture Disposition: Still a Patient Condition: Fair Referrals: Emmanuel Ulrich MD [Primary Care Provider] -
[2018-08-22] MEDS ORDERED: LIDOCAINE JEL 2% 1 TUBE 30GM TOPICAL ONE (08:47)
[2018-08-22] MEDS ORDERED: ACETAMINOPHEN W/CODEINE #3 1 TABLET PO ONE (08:56)
[2018-08-22] MEDS ORDERED: ACETAMINOPHEN 325 MG TABLET PO ONE (08:57)
[2018-08-22 09:03] LABS: Basophils # (Auto) 0 K/mcL (0.0-0.3); Basophils % (Auto) 0.2 % (0.0-2.0); Eosinophils # (Auto) 0.1 K/mcL (0.0-0.7); Eosinophils % (Auto) 1.6 % (0.0-7.0); Granulocytes % (Auto) 64.7 % (38.0-78.0); Lymphocytes # (Auto) 0.9 K/mcL (1.5-4.8); Lymphocytes % (Auto) 17.2 % (15.5-49.0); Mean Cell Volume 89.2 fL (80.0-100.0); Mean Corpuscular HGB Conc 33.5 g/dL (31.0-36.0); Monocytes # (Auto) 0.8 K/mcL (0.1-0.9); Monocytes % (Auto) 16.3 % (1.0-12.0); Platelet Count 167 K/mcL (140-440); RBC 4.01 M/mcL (4.00-5.20); Red Cell Distribution Width 14.6 % (11.5-14.5)
[2018-08-22] MEDS: LACTATED RINGERS 1,000 ML IV SCH ×3 (09:07→13:36)
[2018-08-22 09:15] LABS: ALT/SGPT 11 U/l (0-40); Albumin 3.8 gm/dL (3.2-5.2); Albumin/Globulin Ratio 1.3 (1.0-2.3); Alkaline Phosphatase 79 U/L (39-117); Blood Urea Nitrogen 27 mg/dl (8-23); Creatine Kinase 37 IU/L (24-170); Creatine Kinase MB 1.1 ng/ml (0-2.9); Myoglobin 71 ng/ml (25-58)
[2018-08-22 09:41] LABS: Appearance,Urine CLEAR; Bacteria,Urine 0 /hpf (0); Bilirubin,Urine NEG (NEG); Color,Urine YELLOW; Glucose,Urine (UA) NEGATIVE (NEG); Leukocyte Esterase,Urine 75 /uL (NEG); Mucus,Urine FEW /hpf (0); Protein,Urine NEG (NEG); Specific Gravity,Urine 1.016 (1.000-1.035); Urine Blood NEG mg/dL (<0.03); Urine Hyaline Cast 6 /lpf (0-2); Urine RBC 2 /hpf (0-1); Urine Squamous Epithelial Cell < 1 /hpf (0-4); Urine Transitional Epi Cells < 1 /hpf (0-2); Urine WBC 41 /hpf (0-4); Urobilinogen,Urine NEG (NEG)
[2018-08-22] MEDS ORDERED: LEVOFLOXACIN 500 MG/100 ML BAG IV ONE (10:11)
[2018-08-22] MEDS ORDERED: 0.9 % SODIUM CHLORIDE 1,000 ML IV SCH (11:45)
[2018-08-22] MEDS ORDERED: ONDANSETRON 4 MG/2 ML VIAL IV PRN (12:54)
[2018-08-22] MEDS ORDERED: LORATADINE 10 MG TABLET PO PRN (12:54)
[2018-08-22] MEDS ORDERED: LORazepam 0.5 MG TABLET PO PRN (12:54)
[2018-08-22] MEDS ORDERED: NALOXONE HCL 0.4 MG/ML VIAL IV PRN (12:54)
[2018-08-22] MEDS: 0.9 % SODIUM CHLORIDE 10 ML SYRINGE IV SCH ×2 (13:23→21:06)
--- NOTE | 2018-08-22 14:13 | Cat Scan Report ---
CLINICAL INFORMATION: Closed head injury COMPARISON: 01/17/2018 TECHNIQUE: 0.625 mm axial reformatted images were acquired from the skull base to the apex. Following reconstruction, 2.5 mm axial images were reviewed at bone and parenchymal windows.The exam was performed using radiation dose optimization techniques including, but not limited to, automated exposure control, adjustment of the mA and/or kV according to patient size and use of iterative reconstruction technique. FINDINGS: The ventricles, sulci, fissures and cisterns are symmetrically enlarged compatible with mild age-related atrophy - no subdural hemorrhage or extra-axial fluid collection or mass appreciated. Patchy chronic ischemic changes in the deep cerebral white matter and a 7 mm remote lacunar infarct in the medial right temporal lobe are stable. There is no intracerebral hemorrhage, mass effect, edema or other posttraumatic change. Bone windows show no fracture or other osseous abnormality. IMPRESSION: Mild atrophy and chronic ischemic changes in the the cerebral white matter small remote lacunar infarct medial right temporal lobe. There is no intracerebral hemorrhage or other acute posttraumatic change. 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 Interpreted and Authenticated by: Anderson Douglas 08/22/18
--- NOTE | 2018-08-22 14:18 | XRay Report ---
CLINICAL INFORMATION: Trauma COMPARISON: Chest x-ray 01/17/2018 FINDINGS: Borderline cardiomegaly is unchanged. Mediastinum and pulmonary vessels are normal. The lungs are clear. No evidence of pneumo or hemothorax. Acute mildly displaced fracture of the lateral left fifth rib appreciated. IMPRESSION: Acute, mildly displaced fracture at the lateral left fifth rib. Chest otherwise normal Interpreted and Authenticated by: Anderson Douglas 08/22/18
[2018-08-22] MEDS: oxyCODONE/APAP 5/325MG TABLET PO PRN ×2 (14:20→20:08)
--- NOTE | 2018-08-22 14:21 | XRay Report ---
CLINICAL INFORMATION: fall COMPARISON: Pelvic CT 04/05/2017 FINDINGS: Mild diffuse osteoporosis is noted. No fracture appreciated. 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 There is minimal degenerative change both SI and hip joints. No soft tissue abnormality IMPRESSION: No evidence of fracture Interpreted and Authenticated by: Anderson Douglas 08/22/18
[2018-08-22] MEDS: ACETAMINOPHEN 325 MG TABLET PO SCH ×2 (14:25→20:12)
--- NOTE | 2018-08-22 14:26 | XRay Report ---
CLINICAL INFORMATION: Trauma COMPARISON: None. FINDINGS: The acromioclavicular and glenohumeral joint spaces are normal in width and alignment, without arthritic change. There is no fracture or other osseous abnormality. Soft tissues are unremarkable. Acute mildly displaced left fifth rib fracture is again seen. IMPRESSION: Normal shoulder. Interpreted and Authenticated by: Anderson Douglas 08/22/18
--- NOTE | 2018-08-22 14:40 | Internal Med History&Physical ---
Medical - H&P: HPI Patient information: Note initiated : 08/22/18 at 2:37 pm Service Date, if different from initiated Date: [] Patient: Lela Pressley a 87 y/o F admitted on 08/22/18 for Multiple Falls, Weakness. Chief Complaint: [] History of present illness: Ms. Pressley is a 87 year old F with history of recurrent urinary tract infections, congestive heart failure chronic kidney disease who lives by herself presents to the emergency room today for recurrent falls. The patient notes that she fell approximately 3 times over the last 1 week. Prior to that she was diagnosed I believe with influenza, and she did take her Tamiflu. 1 week before she notes she had the first fall when she was lying in bed she got up and tried to do something when she felt dizzy and fell down. She denies hitting her head or having any loss of consciousness. She denies any prodromal symptoms bowel or bladder incontinence. She had 2 more episodes of these falls last of one was yesterday. Yesterday when she fell she also had pain on the left side of the chest. Her son eventually brought her to the emergency room for further evaluation. Over the last few days the patient also admits to having increased frequency of urination. She admits to having recurrent urinary tract infections and feels like one is coming on. She denies any new headaches changes in vision difficulty in swallowing and hearing difficulties, denies any cough or shortness of breath admits to having chest pain with respirations on the left side, no nausea no vomiting no diarrhea, has increased frequency of urination no blood in the urine she admits to having some pain in the left knee, she denies any new skin rashes denies any anxiety or depression. She feels she is doing well at home and is able to care for herself she admits to having dizziness whenever she gets up which sounds like orthostatic dizziness and knows that she has to get up slowly but sometimes forgets. She would like to avoid going to senior care if possible, her is presently in a senior care. It seems however the family her son wants her to go to a rehab center and is concerned about her safety at home. On presentation to the emergency room patient was afebrile, hemodynamically stable. Labs reviewed her creatinine is around baseline, she does not have justina kocytosis hemoglobin seems to be stable. Elect lites are stable her urine does suggest a UTI. Chest x-ray done showed that she has a fracture on the left rib on the fifth ray. Her pelvis x-ray left shoulder x-ray head CT are negative for any acute changes. Given the fact that she has had 3 episodes of fall, resulting in a wrist fracture, she does have a UTI she is being admitted to the hospital for further management All systems: reviewed and no additional remarkable complaints except as stated (As per HPI rest negative) Medical - H&P: H Medical history: Medical History (Last Reviewed 08/16/18 @ 11:55 by Patty Nye DO) Urinary tract infection (Chronic) Sinusitis (Chronic) Metabolic Syndrome X (Chronic) Sinusitis (Resolved) Knee strain (Chronic) Sinusitis (Resolved) Right foot strain (Chronic) Vitreous degeneration (Chronic 03/08/14) Vitamin D deficiency (Chronic) Candidal vaginitis (Chronic 11/10/13) Pseudophakia (Chronic) Peripheral vascular disease (Chronic) Osteoporosis (Chronic 07/26/14) Panic disorder (Chronic 06/09/12) Osteoarthritis (Chronic) Osteopenia (Chronic 03/21/13) Onychomycosis (Chronic 07/26/14) Obesity (Chronic) Personal history of malignant melanoma of skin (Chronic) Macular degeneration (Chronic) Keratoconjunctivitis sicca, not specified as Sjogren's (Chronic) Hypothyroidism (Chronic) Dyslipidemia (Chronic) Hypercalcemia (Chronic) Essential hypertension (Chronic) Ventral hernia (Chronic) Gout (Chronic) Dysmetabolic syndrome X (Chronic) 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) Costochondritis (Chronic 09/16/12) Corneal dystrophy (Chronic) Chronic kidney disease, stage III (moderate) (Chronic) Blepharitis (Chronic 09/11/14) Basal cell carcinoma of skin of other parts of face (Chronic) 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) Anxiety (Chronic) Anemia (Resolved) Maxillary sinusitis, acute (Resolved) Sinusitis (Resolved) Contusion (Resolved) Fracture of fifth metatarsal bone of left foot (Resolved) Acute sinusitis (Resolved 09/12/14) History of hysterectomy (Resolved) Surgical history: Past Surgical History (Last Reviewed 08/04/18 @ 16:07 by Ashley Reed PA-C) History of cataract surgery (Resolved) History of cholecystectomy (Resolved) History of colonoscopy (Resolved) History of esophagogastroduodenoscopy (EGD) (Resolved) History of salpingo-oophorectomy (Resolved) History of tonsillectomy (Resolved) Normal cystoscopy (Resolved) Status post Mohs surgery for basal cell carcinoma (Resolved 06/02/16) Pertinent family history: Family History (Last Reviewed 08/04/18 @ 16:07 by Ashley Reed PA-C) Father Coronary artery disease Other Breast cancer Diabetes Kidney stones Medical - H&P: Meds Home Medications Medication Instructions Recorded Confirmed Type aspirin 81 mg tablet,delayed 81 mg PO QDAY 06/26/17 08/22/18 History release loratadine 10 mg tablet 10 mg PO QDAY PRN #30 tab 10/01/17 08/22/18 Rx D-Mannose powder or caps 2,000 mg PO .Daily #1 unit 12/09/17 08/22/18 Rx cholecalciferol (vitamin D3) 5,000 5,000 unit PO QDAY 02/08/18 08/22/18 History unit capsule vitamins A,C,H-xent-vdlzqm 14,320 1 cap PO BID 02/08/18 08/22/18 History unit-226 mg-200 unit capsule carvedilol 3.125 mg tablet 3.125 mg PO BID #180 tab 04/15/18 08/22/18 Rx levothyroxine 125 mcg tablet 125 mcg PO DAILY #90 tab 04/15/18 08/22/18 Rx losartan 100 mg tablet 100 mg PO DAILY #90 tab 04/15/18 08/22/18 Rx oxybutynin chloride ER 10 mg 10 mg PO QDAY #90 tab 04/15/18 08/22/18 Rx tablet,extended release 24 hr simvastatin 20 mg tablet 20 mg PO HS #90 tab 04/15/18 08/22/18 Rx hydroxyzine HCl 10 mg tablet 10 mg PO QHS PRN #30 tab MDD OAB 05/11/18 08/22/18 Rx lorazepam 0.5 mg tablet 0.5 mg PO BID PRN #60 tab 06/29/18 08/22/18 Rx imipramine 10 mg tablet See Rx Instructions PO BID 30 Days 08/04/18 08/22/18 Rx #0 tab E2-E3 20/80- 1 Mg per gram See Rx Instructions .ROUTE 08/05/18 08/22/18 Rx .COMPLEX #60 g MDD recurrent UTI Allergies Allergy/AdvReac Type Severity Reaction Status Date / Time pravastatin [From Pravachol] AdvReac Intermediate Cramping Verified 08/22/18 08:03 of the Muscles hydrocodone AdvReac Mild Nausea Verified 08/22/18 08:03 lisinopril AdvReac Mild Cough Verified 08/22/18 08:03 Medical - H&P: Exam - Constitutional Vitals: Temp Pulse Resp BP Pulse Ox 97.2 F 56 L 20 184/94 96 08/22/18 14:25 08/22/18 12:24 08/22/18 12:54 08/22/18 12:54 08/22/18 12:54 Exam: GENERAL: The patient is a well-developed, well-nourished in no apparent distress. Is alert and oriented x3. VITAL SIGNS: Reviewed and as noted elsewhere. HEENT: Head is normocephalic and atraumatic. Extraocular muscles are intact. Pupils are equal, round, and reactive to light. Nares appeared normal. Mouth appears any without lesions. Mucous membranes are moist. NECK: Normal to inspection, Supple, No lymphadenopathy or thyromegaly. LUNGS: Air entry equal on both sides, no wheezing, crackles or rhonchi noted. No accessory muscles of respiration HEART: Regular rate and rhythm normal, S1 and S2 heard, no Gallop, S3 or Rub Noted, No Gross murmur heard. ABDOMEN: Soft, nontender, and nondistended. Positive bowel sounds. No hepatosplenomegaly was noted. EXTREMITIES: No cyanosis, clubbing, rash, lesions or edema. bruising on left knee NEUROLOGIC: Cranial nerves II through XII are grossly intact. Motor and Sensory System Grossly Intact PSYCHIATRIC: Normal affect, Normal Mood. Appropriate Behavior. SKIN: No ulceration or wounds noted, No jaundice, No rash noted. Medical - H&P: Reslt - Labs CBC & Chem 7: 08/22/18 08:12 08/22/18 08:12 Labs: Short CBC 08/22/18 Range/Units 08:12 WBC 5.1 (4.5-11.0) K/mcL Hgb 12.0 (12.0-15.0) g/dL Hct 35.7 L (36.0-48.0) % Plt Count 167 (140-440) K/mcL BMP 08/22/18 08:12 Sodium 135 Potassium 4.6 Chloride 101 Carbon Dioxide 22 BUN 27 H Creatinine 1.5 H Glucose 157 H Calcium 9.4 Cardiac Enzymes 08/22/18 08/22/18 Range/Units 08:12 08:12 Total Creatine Kinase 37 (24-170) IU/L CK-MB (CK-2) 1.1 (0-2.9) ng/ml Troponin T < 0.01 (0-0.03) ng/ml Liver Function 08/22/18 Range/Units 08:12 Total Bilirubin 0.8 (0.0-1.0) mg/dL AST 13 (0-37) U/l ALT 11 (0-40) U/l Alkaline Phosphatase 79 (39-117) U/L Albumin 3.8 (3.2-5.2) gm/dL Urine 08/22/18 Range/Units 09:00 Urine Color Yellow Urine Appearance Clear Urine pH 6.0 (5.0-9.0) Ur Specific [place] 1.016 (1.000-1.035) Urine Protein Neg (NEG) mg/dL Urine Glucose (UA) Negative (NEG) mg/dL Medical - H&P: A/P - Narrative A/P Narrative: A/P Recurrent falls -Appear orthostatic in nature, Check orthostatic,s IV fluids, and monitor on tele for any abnormal rhythm, EKG shows sinus, 1st deg HB and LAFB. -OT/PT eval, if needed will consider SNF placement. UTI -Recurrent UTI, Levofloxacin for now, based on previous sensitivity Left Rib fracture, Traumatic -PO pain management, mariel tylenol, Incentive spirometery for resp toilet Falls -CT head, pelvis neg, shoulder neg, given bruising on the left knee, will get x ray of same. HTN/ HLD -resume home medications, bp stable, high h/o CHF -no e/o acute exacerbation at this time. DM -not on meds, was on metformin, stopped due to CKD, will monitor this for now, if glucose is elevated on bmp, will consider instituing carb consistient diet and sliding scale insulin CKD -stable creat, follows with Dr Harmon DVT hep sq DNR code status Medical - H&P: Qual - Stroke Symptom Onset Unknown: No - VTE Deep Vein Thrombosis/Pulmonary Embolism Present on Admission: No Social History - Social History household members: spouse housing: house lives independently: Yes marital status: occupation: self employed - Tobacco smoking status: Former smoker - Alcohol alcohol intake frequency: does not drink - Substance use substance use type: does not use
--- NOTE | 2018-08-22 15:09 | XRay Report ---
CLINICAL INFORMATION: fall trauma COMPARISON: 06/26/2017 FINDINGS: No fracture identified. There is mild degenerative change in the medial tibiofemoral joint. Mild ossification of the medial collateral ligament insertion on the medial femoral condyle appreciated. This is unchanged IMPRESSION: Mild degenerative change. No fracture. Interpreted and Authenticated by: Anderson Douglas 08/22/18
[2018-08-22] MEDS: VIT A,C & E/LUTEIN/MINERALS TABLET PO SCH (20:09)
[2018-08-22] MEDS: CARVEDILOL 3.125 MG TABLET PO SCH (20:09)
[2018-08-22] MEDS: IMIPRAMINE 25 MG TABLET PO SCH (20:09)
[2018-08-22] MEDS: HEPARIN 5,000 UNIT/ML VIAL SQ SCH (20:12)
[2018-08-22] MEDS ORDERED: SIMVASTATIN 20 MG TABLET PO SCH (21:00)
[2018-08-22] MEDS ORDERED: hydrOXYzine 10 MG TABLET PO PRN (21:00)
[2018-08-22] MEDS ORDERED: HYDROmorphone 2 MG/ML VIAL IV PRN (21:57)
[2018-08-23] MEDS: oxyCODONE/APAP 5/325MG TABLET PO PRN ×2 (04:08→09:02)
[2018-08-23] MEDS: LACTATED RINGERS 1,000 ML IV SCH (04:09)
[2018-08-23] MEDS: 0.9 % SODIUM CHLORIDE 10 ML SYRINGE IV SCH ×3 (05:11→22:23)
[2018-08-23] MEDS ORDERED: LEVOTHYROXINE 125 MCG TABLET PO SCH (07:30)
[2018-08-23 08:34] LABS: Basophils # (Auto) 0 K/mcL (0.0-0.3); Basophils % (Auto) 0.2 % (0.0-2.0); Eosinophils # (Auto) 0.1 K/mcL (0.0-0.7); Eosinophils % (Auto) 2.2 % (0.0-7.0); Granulocytes % (Auto) 58.8 % (38.0-78.0); Lymphocytes # (Auto) 1.2 K/mcL (1.5-4.8); Lymphocytes % (Auto) 23.5 % (15.5-49.0); Mean Cell Volume 89.7 fL (80.0-100.0); Mean Corpuscular HGB Conc 33.6 g/dL (31.0-36.0); Monocytes # (Auto) 0.8 K/mcL (0.1-0.9); Monocytes % (Auto) 15.3 % (1.0-12.0); Platelet Count 169 K/mcL (140-440); RBC 3.68 M/mcL (4.00-5.20); Red Cell Distribution Width 14.4 % (11.5-14.5)
[2018-08-23] MEDS ORDERED: OXYBUTYNIN CHLORIDE 5 MG TAB.XL.24H PO SCH (09:00)
[2018-08-23] MEDS ORDERED: ASPIRIN 81 MG TAB.CHEW PO SCH (09:00)
[2018-08-23] MEDS ORDERED: LOSARTAN 50 MG TABLET PO SCH (09:00)
[2018-08-23] MEDS ORDERED: VITAMIN D3 5,000 UNIT CAPSULE PO SCH (09:00)
[2018-08-23] MEDS: HEPARIN 5,000 UNIT/ML VIAL SQ SCH ×2 (09:02→22:14)
[2018-08-23 09:03] LABS: ALT/SGPT 8 U/l (0-40); Albumin 3.2 gm/dL (3.2-5.2); Albumin/Globulin Ratio 1.1 (1.0-2.3); Alkaline Phosphatase 80 U/L (39-117); Bilirubin,Direct < 0.2 mg/dL (0.0-0.3); Blood Urea Nitrogen 23 mg/dl (8-23); Gamma Glutamyl Transpeptidase 12 U/L (5-36); Uric Acid 5.4 mg/dL (2.5-8.0)
[2018-08-23] MEDS: IMIPRAMINE 25 MG TABLET PO SCH ×2 (09:03→22:21)
[2018-08-23] MEDS: CARVEDILOL 3.125 MG TABLET PO SCH (09:03)
[2018-08-23] MEDS: ACETAMINOPHEN 325 MG TABLET PO SCH ×3 (09:12→22:15)
[2018-08-23] MEDS: VIT A,C & E/LUTEIN/MINERALS TABLET PO SCH ×2 (09:14→22:20)
[2018-08-23] MEDS ORDERED: oxyCODONE HCL 5 MG TABLET PO PRN (09:19)
--- NOTE | 2018-08-23 09:30 | Internal Med Progress Note ---
Medical - PN: Subj Patient information: Note initiated : 08/23/18 at 9:25 am Service Date, if different from initiated Date: [] Patient: Lela Pressley a 87 y/o F admitted on 08/22/18 for Multiple Falls, Weakness. Chief Complaint: [] Interval history: Ms. Pressley is a 87 year old F with history of recurrent urinary tract infections, congestive heart failure chronic kidney disease who lives by herself presents to the emergency room today for recurrent falls. The patient notes that she fell approximately 3 times over the last 1 week. Prior to that she was diagnosed I believe with influenza, and she did take her Tamiflu. 1 week before she notes she had the first fall when she was lying in bed she got up and tried to do something when she felt dizzy and fell down. She denies hitting her head or having any loss of consciousness. She denies any prodromal symptoms bowel or bladder incontinence. She had 2 more episodes of these falls last of one was yesterday. Yesterday when she fell she also had pain on the left side of the chest. Her son eventually brought her to the emergency room for further evaluation. Over the last few days the patient also admits to having increased frequency of urination. She admits to having recurrent urinary tract infections and feels like one is coming on. She denies any new headaches changes in vision difficulty in swallowing and hearing difficulties, denies any cough or shortness of breath admits to having chest pain with respirations on the left side, no nausea no vomiting no diarrhea, has increased frequency of urination no blood in the urine she admits to having some pain in the left knee, she denies any new skin rashes denies any anxiety or depression. She feels she is doing well at home and is able to care for herself she admits to having dizziness whenever she gets up which sounds like orthostatic dizziness and knows that she has to get up slowly but sometimes forgets. She would like to avoid going to half-way if possible, her is presently in a half-way. It seems however the family her son wants her to go to a rehab center and is concerned about her safety at home. On presentation to the emergency room patient was afebrile, hemodynamically stable. Labs reviewed her creatinine is around baseline, she does not have leukocytosis hemoglobin seems to be stable. Elect lites are stable her urine does suggest a UTI. Chest x-ray done showed that she has a fracture on the left rib on the fifth ray. Her pelvis x-ray left shoulder x-ray head CT are negative for any acute changes. Given the fact that she has had 3 episodes of fall, resulting in a wrist fracture, she does have a UTI she is being admitted to the hospital for further management 08/23 Pt seen examined, no acute overnight issues, tolerating po diet well pain in the chest still present, needing IV pain meds Urine has gram neg bacillus, identification and sensitivity pending Transfer to [facility] status Patient noted that she would not go to a rehab center Pertinent ROS: Denies headache, dizziness Left-sided chest pain present, no palpitations Denies cough or shortness of breath Denies abdominal pain, nausea or vomiting. - Constitutional Vitals: Vital Signs Temp Pulse Resp BP Pulse Ox 97.6 F 52 L 18 157/89 94 08/23/18 07:51 08/23/18 04:12 08/23/18 07:51 08/23/18 07:51 08/23/18 07:51 Period Temp Pulse Resp BP Sys/Pearson Pulse Ox Last 24 Hr 97.2 F-98.6 F 52-84 13-23 98-184/48-100 89-100 Intake and Output 08/22/18 08/23/18 08/23/18 21:59 05:59 13:59 Intake Total 240 1306 Output Total 2 100 Balance 238 1206 Weight 166 lb 8 oz Intake & Output: Intake & Output 08/22/18 08/23/18 08/23/18 21:59 05:59 13:59 Intake Total 240 1306 Output Total 2 100 Balance 238 1206 Weight 166 lb 8 oz Intake: IV 966 Lactated Ringers 1,000 ml @ 75 966 mls/hr IV .[id number] MARIEL Rx#: [id number] Oral 240 340 Output: # of times incontinent of urine 2 100 Other: Meal Dinner Percent of Meal Consumed 100% Feeding Ability Independent # Voids 2 1 Exam: Constitutional; Afebrile, cooperative, alert, not in distress. Respiratory system: Air Entry equal on both sides, No crackles or wheezing, no rhonchi. CVS- Rate rhythm regular, S1,S2 heard, no gallop, no rub. Abdomen- Soft nontender abdomen, no organomegaly, no tenderness, no guarding or rigidity, CARDIAC MONITOR- AOOx3, moving all extremities, no gross focal deficit noted. Medical - PN: Obj Da - Labs CBC & Chem 7: 08/23/18 07:34 08/23/18 07:34 Labs: Abnormal Lab Results 08/23/18 08/23/18 08/22/18 07:34 07:34 09:00 RBC 3.68 L Hgb 11.1 L Hct 33.0 L RDW Nicholas % (Auto) 15.3 H Lymph # (Auto) 1.2 L BUN Creatinine 1.5 H Glucose 111 H Myoglobin Triglycerides 187 H Ur Leukocyte Esterase 75 A Urine RBC 2 H Urine WBC 41 H Hyaline Casts 6 H 08/22/18 08/22/18 08:12 08:12 RBC Hgb Hct 35.7 L RDW 14.6 H Nicholas % (Auto) 16.3 H Lymph # (Auto) 0.9 L BUN 27 H Creatinine 1.5 H Glucose 157 H Myoglobin 71 H Triglycerides Ur Leukocyte Esterase Urine RBC Urine WBC Hyaline Casts Meds: Medications Acetaminophen (Tylenol) 1,000 mg PO TID [facility] Aspirin (Aspirin) 81 mg PO DAILY [facility] Last Admin: 08/23/18 09:03 Dose: 81 mg Documented by: Carvedilol (Coreg) 3.125 mg PO BID [facility] Last Admin: 08/23/18 09:03 Dose: 3.125 mg Documented by: Heparin Sodium (Porcine) (Heparin) 5,000 unit SQ Q12 [facility] Last Admin: 08/23/18 09:02 Dose: 5,000 unit Documented by: Hydromorphone HCl (Dilaudid) 0.5 mg IV Q2HP PRN PRN Reason: PAIN LEVEL > 6 Last Admin: 08/22/18 22:14 Dose: 0.5 mg Documented by: Hydroxyzine HCl (Vistaril) 0 mg PO HSP PRN PRN Reason: Dysuria Lactated Ringer's (Lactated Ringers) 1,000 mls @ 75 mls/hr IV .[id number] [facility] Stop: 08/23/18 15:33 Last Admin: 08/23/18 04:09 Dose: 75 mls/hr Documented by: Imipramine HCl (Tofranil) 25 mg PO BID [facility] Last Admin: 08/23/18 09:03 Dose: 25 mg Documented by: Levofloxacin (Levaquin) 500 mg PO Q48H [facility]; Protocol Levothyroxine Sodium (Synthroid) 125 mcg PO ACB [facility] Last Admin: 08/23/18 08:53 Dose: 125 mcg Documented by: Loratadine (Claritin) 10 mg PO DAILYP PRN PRN Reason: ALLERGY SYMPTOMS Lorazepam (Ativan) 0.5 mg PO BIDP PRN PRN Reason: Anxiety Losartan Potassium (Cozaar) 100 mg PO DAILY [facility] Last Admin: 08/23/18 09:03 Dose: 100 mg Documented by: Multivitamins/Minerals (Ocuvite) 1 tab PO BID [facility] Last Admin: 08/23/18 09:14 Dose: 1 tab Documented by: Naloxone HCl (Narcan) 0.1 mg IV Q2MIN PRN PRN Reason: Opiate Reversal Ondansetron HCl (Zofran) 4 mg IV Q4HP PRN PRN Reason: Nausea And Vomiting Oxybutynin Chloride (Ditropan Xl) 10 mg PO DAILY [facility] Last Admin: 08/23/18 09:03 Dose: 10 mg Documented by: Oxycodone HCl (Roxicodone) 5 mg PO Q4HP PRN PRN Reason: PAIN LEVEL 3-6 Simvastatin (Zocor) 20 mg PO HS [facility] Last Admin: 08/22/18 20:13 Dose: 20 mg Documented by: Sodium Chloride (Saline Flush) 10 ml IV Q8 [facility] Last Admin: 08/23/18 05:11 Dose: Not Given Documented by: Vitamin D (Vitamin D3) 5,000 unit PO DAILY [facility] Last Admin: 08/23/18 09:03 Dose: 5,000 unit Documented by: Medical - PN: A/P - Time Spent With Patient Total time spent is greater than 50% in coordination of care (as documented) at patient's floor/unit and/or counseling patient: - Narrative A/P Narrative: A/P Recurrent falls -Appear orthostatic in nature, Check orthostatic,s IV fluids, and monitor on tele for any abnormal rhythm, EKG shows sinus, 1st deg HB and LAFB. -OT/PT eval, if needed will consider SNF placement, pt is refusing placement at this time. UTI -Recurrent UTI, Levofloxacin for now, based on previous sensitivity, urine culture identification pending. Left Rib fracture, Traumatic -PO pain management, mariel tylenol, prn oxycodone and IV dilaudid, -Incentive spirometery. Falls -CT head, pelvis neg, shoulder neg, knee x ray neg. HTN/ HLD -resume home medications, bp stable, high h/o CHF -no e/o acute exacerbation at this time. DM -not on meds, was on metformin, stopped due to CKD, will monitor this for now, this AM glucose on bmp was 111 CKD -stable creat, follows with Dr Harmon DVT hep sq DNR code status Transfer to med surg status. Medical - PN: Qual - Stroke Symptom Onset Unknown: No - VTE Deep Vein Thrombosis/Pulmonary Embolism Present on Admission: No
[2018-08-23] MEDS ORDERED: ONDANSETRON 4 MG/2 ML VIAL IV PRN (10:09)
[2018-08-23] MEDS ORDERED: HYDROmorphone 2 MG/ML VIAL IV PRN (10:09)
[2018-08-23] MEDS ORDERED: NALOXONE HCL 0.4 MG/ML VIAL IV PRN (10:09)
[2018-08-23] MEDS ORDERED: LACTATED RINGERS 1,000 ML IV SCH (10:09)
[2018-08-23] MEDS ORDERED: LORazepam 0.5 MG TABLET PO PRN (10:09)
[2018-08-23] MEDS ORDERED: LORATADINE 10 MG TABLET PO PRN (10:09)
[2018-08-23] MEDS ORDERED: ACETAMINOPHEN 325 MG TABLET PO SCH (15:00)
[2018-08-23] MEDS: oxyCODONE HCL 5 MG TABLET PO PRN ×2 (15:10→22:22)
[2018-08-23] MEDS ORDERED: CARVEDILOL 3.125 MG TABLET PO SCH (21:00)
[2018-08-23] MEDS ORDERED: hydrOXYzine 10 MG TABLET PO PRN (21:00)
[2018-08-23] MEDS: SIMVASTATIN 20 MG TABLET PO SCH (22:21)
[2018-08-24] MEDS: 0.9 % SODIUM CHLORIDE 10 ML SYRINGE IV SCH ×3 (05:06→22:22)
[2018-08-24] MEDS: oxyCODONE HCL 5 MG TABLET PO PRN ×3 (05:06→22:21)
[2018-08-24 06:06] LABS: Basophils # (Auto) 0 K/mcL (0.0-0.3); Basophils % (Auto) 0.3 % (0.0-2.0); Eosinophils # (Auto) 0.2 K/mcL (0.0-0.7); Eosinophils % (Auto) 3.5 % (0.0-7.0); Granulocytes % (Auto) 51.8 % (38.0-78.0); Lymphocytes # (Auto) 1.2 K/mcL (1.5-4.8); Lymphocytes % (Auto) 27.4 % (15.5-49.0); Mean Cell Volume 90.9 fL (80.0-100.0); Mean Corpuscular HGB Conc 32.6 g/dL (31.0-36.0); Monocytes # (Auto) 0.7 K/mcL (0.1-0.9); Platelet Count 143 K/mcL (140-440); RBC 3.49 M/mcL (4.00-5.20); Red Cell Distribution Width 14.4 % (11.5-14.5)
[2018-08-24 06:33] LABS: ALT/SGPT 8 U/l (0-40); Albumin 2.9 gm/dL (3.2-5.2); Albumin/Globulin Ratio 1.1 (1.0-2.3); Alkaline Phosphatase 76 U/L (39-117); Bilirubin,Direct < 0.2 mg/dL (0.0-0.3); Blood Urea Nitrogen 20 mg/dl (8-23); Gamma Glutamyl Transpeptidase 12 U/L (5-36); Uric Acid 5.2 mg/dL (2.5-8.0)
[2018-08-24] MEDS ORDERED: LEVOFLOXACIN 500 MG TABLET PO SCH ×2 (09:00)
[2018-08-24] MEDS: CARVEDILOL 3.125 MG TABLET PO SCH ×2 (09:50→16:53)
[2018-08-24] MEDS: VITAMIN D3 5,000 UNIT CAPSULE PO SCH (09:50)
[2018-08-24] MEDS: VIT A,C & E/LUTEIN/MINERALS TABLET PO SCH ×2 (09:51→22:20)
[2018-08-24] MEDS: LOSARTAN 50 MG TABLET PO SCH (09:51)
[2018-08-24] MEDS: OXYBUTYNIN CHLORIDE 5 MG TAB.XL.24H PO SCH (09:52)
[2018-08-24] MEDS: ASPIRIN 81 MG TAB.CHEW PO SCH (09:52)
--- NOTE | 2018-08-24 09:52 | Internal Med Progress Note ---
Medical - PN: Subj Patient information: Note initiated : 08/24/18 at 9:49 am Service Date, if different from initiated Date: [] Patient: Lela Pressley a 87 y/o F admitted on 08/22/18 for Multiple Falls, Weakness. Chief Complaint: [] Interval history: Ms. Pressley is a 87 year old F with history of recurrent urinary tract infections, congestive heart failure chronic kidney disease who lives by herself presents to the emergency room today for recurrent falls. The patient notes that she fell approximately 3 times over the last 1 week. Prior to that she was diagnosed I believe with influenza, and she did take her Tamiflu. 1 week before she notes she had the first fall when she was lying in bed she got up and tried to do something when she felt dizzy and fell down. She denies hitting her head or having any loss of consciousness. She denies any prodromal symptoms bowel or bladder incontinence. She had 2 more episodes of these falls last of one was yesterday. Yesterday when she fell she also had pain on the left side of the chest. Her son eventually brought her to the emergency room for further evaluation. Over the last few days the patient also admits to having increased frequency of urination. She admits to having recurrent urinary tract infections and feels like one is coming on. She denies any new headaches changes in vision difficulty in swallowing and hearing difficulties, denies any cough or shortness of breath admits to having chest pain with respirations on the left side, no nausea no vomiting no diarrhea, has increased frequency of urination no blood in the urine she admits to having some pain in the left knee, she denies any new skin rashes denies any anxiety or depression. She feels she is doing well at home and is able to care for herself she admits to having dizziness whenever she gets up which sounds like orthostatic dizziness and knows that she has to get up slowly but sometimes forgets. She would like to avoid going to custodial if possible, her is presently in a custodial. It seems however the family her son wants her to go to a rehab center and is concerned about her safety at home. On presentation to the emergency room patient was afebrile, hemodynamically stable. Labs reviewed her creatinine is around baseline, she does not have leukocytosis hemoglobin seems to be stable. Elect lites are stable her urine does suggest a UTI. Chest x-ray done showed that she has a fracture on the left rib on the fifth ray. Her pelvis x-ray left shoulder x-ray head CT are negative for any acute changes. Given the fact that she has had 3 episodes of fall, resulting in a wrist fracture, she does have a UTI she is being admitted to the hospital for further management 08/23 Pt seen examined, no acute overnight issues, tolerating po diet well pain in the chest still present, needing IV pain meds Urine has gram neg bacillus, identification and sensitivity pending Transfer to [facility] status Patient noted that she would not go to a rehab center 08/24-patient clinically improved. Resting comfortably. No overnight events except for intermittent bradycardia for which Coreg was held. No fever chills nausea vomiting. Intermittent productive cough with pain and hip fracture site. Ongoing PT OT. Patient resides at [facility] likely discharge once clinically stable. Anticipate discharge in 24 hours. - Constitutional Vitals: Vital Signs Temp Pulse Resp BP Pulse Ox 97.2 F 60 14 154/60 89 L 08/24/18 08:00 08/24/18 08:00 08/24/18 08:00 08/24/18 08:00 08/24/18 08:00 Period Temp Pulse Resp BP Sys/Pearson Pulse Ox Last 24 Hr 97.2 F-98.0 F 52-60 12-20 127-154/51-67 89-99 Intake and Output 08/23/18 08/24/18 08/24/18 21:59 05:59 13:59 Intake Total 200 25 Output Total 1 2 100 Balance 199 23 -100 Weight 187 lb Intake & Output: Intake & Output 08/23/18 08/24/18 08/24/18 21:59 05:59 13:59 Intake Total 200 25 Output Total 1 2 100 Balance 199 23 -100 Weight 187 lb Intake: Oral 200 25 Output: Void Amount 100 # of times incontinent of urine 1 2 Other: Urine Appearance Clear Urine Color Bright Yellow Urine Odor Normal # Voids 1 5 1 # Bowel Movements 0 # of times incontinent of 0 Bowels General appearance: no acute distress Exam: Resting comfortably Nonlabored breathing No anxiety Alert oriented Medical - PN: Obj Da - Labs CBC & Chem 7: 08/24/18 04:08 08/24/18 04:08 Labs: Abnormal Lab Results 08/24/18 08/24/18 08/23/18 04:08 04:08 07:34 WBC 4.4 L RBC 3.49 L Hgb 10.4 L Hct 31.7 L RDW [place] % (Auto) 17.0 H Lymph # (Auto) 1.2 L BUN Creatinine 1.3 H 1.5 H Glucose 111 H Phosphorus 2.6 L Myoglobin Total Protein 5.6 L Albumin 2.9 L Triglycerides 151 H 187 H Ur Leukocyte Esterase Urine RBC Urine WBC Hyaline Casts 08/23/18 08/22/18 08/22/18 07:34 09:00 08:12 WBC RBC 3.68 L Hgb 11.1 L Hct 33.0 L RDW [place] % (Auto) 15.3 H Lymph # (Auto) 1.2 L BUN 27 H Creatinine 1.5 H Glucose 157 H Phosphorus Myoglobin 71 H Total Protein Albumin Triglycerides Ur Leukocyte Esterase 75 A Urine RBC 2 H Urine WBC 41 H Hyaline Casts 6 H 08/22/18 08:12 WBC RBC Hgb Hct 35.7 L RDW 14.6 H [place] % (Auto) 16.3 H Lymph # (Auto) 0.9 L BUN Creatinine Glucose Phosphorus Myoglobin Total Protein Albumin Triglycerides Ur Leukocyte Esterase Urine RBC Urine WBC Hyaline Casts Meds: Medications Acetaminophen (Tylenol) 1,000 mg PO TID [facility] Aspirin (Aspirin) 81 mg PO DAILY [facility]) [facility] Heparin Sodium (Porcine) (Heparin) 5,000 unit SQ Q12 [facility] Last Admin: 08/23/18 22:14 Dose: 5,000 unit Documented by: Hydromorphone HCl (Dilaudid) 0.5 mg IV Q2HP PRN PRN Reason: PAIN LEVEL > 6 Last Admin: 08/23/18 11:06 Dose: 0.5 mg Documented by: Hydroxyzine HCl (Vistaril) 0 mg PO HSP PRN PRN Reason: Dysuria Imipramine HCl (Tofranil) 25 mg PO BID [facility] Last Admin: 08/23/18 22:21 Dose: 25 mg Documented by: Levofloxacin (Levaquin) 500 mg PO Q48H [facility]; Protocol Levothyroxine Sodium (Synthroid) 125 mcg PO ACB [facility] Loratadine (Claritin) 10 mg PO DAILYP PRN PRN Reason: ALLERGY SYMPTOMS Lorazepam (Ativan) 0.5 mg PO BIDP PRN PRN Reason: Anxiety Losartan Potassium (Cozaar) 100 mg PO DAILY [facility] Multivitamins/Minerals (Ocuvite) 1 tab PO BID [facility] Last Admin: 08/23/18 22:20 Dose: 1 tab Documented by: Naloxone HCl (Narcan) 0.1 mg IV Q2MIN PRN PRN Reason: Opiate Reversal Ondansetron HCl (Zofran) 4 mg IV Q4HP PRN PRN Reason: Nausea And Vomiting Oxybutynin Chloride (Ditropan Xl) 10 mg PO DAILY [facility] Oxycodone HCl (Roxicodone) 5 mg PO Q4HP PRN PRN Reason: PAIN LEVEL 3-6 Last Admin: 08/24/18 05:06 Dose: 5 mg Documented by: Simvastatin (Zocor) 20 mg PO HS [facility] Last Admin: 08/23/18 22:21 Dose: 20 mg Documented by: Sodium Chloride (Saline Flush) 10 ml IV Q8 [facility] Last Admin: 08/24/18 05:06 Dose: 10 ml Documented by: Vitamin D (Vitamin D3) 5,000 unit PO DAILY [facility] Medical - PN: A/P - Time Spent With Patient Total time spent is greater than 50% in coordination of care (as documented) at patient's floor/unit and/or counseling patient: 25 - 35 minutes (1) Rib fracture Status: Acute Assessment and plan: * Left fifth rib fracture-continue pain management * Recurrent falls ongoing PT OT/gait and safety eval. Anticipate SNF transfer in 24 hours. No evidence of orthostasis/arrhythmias. * NOn complicated UTI-currently on levofloxacin, target five-day treatment * Hypertension-hold Coreg for 24 hours in light of bradycardia, start amlodipine, continue losartan * History of CHF currently well compensated * DM type II diet-controlled * History of CKD-stable * DVT prophylaxis heparin Plan * Continue aggressive PT OT/gait and safety eval * nutritional support * Optimize hypertension management * Pre-existing medical issue management as above * Possible discharge in 24 hours to SNF Current Visit: Yes Medical - PN: Qual - Stroke Symptom Onset Unknown: No - VTE Deep Vein Thrombosis/Pulmonary Embolism Present on Admission: No
[2018-08-24] MEDS: IMIPRAMINE 25 MG TABLET PO SCH ×2 (09:53→22:21)
[2018-08-24] MEDS: LEVOTHYROXINE 125 MCG TABLET PO SCH (09:53)
[2018-08-24] MEDS: ACETAMINOPHEN 500 MG TABLET PO SCH ×3 (09:54→22:18)
[2018-08-24] MEDS: HEPARIN 5,000 UNIT/ML VIAL SQ SCH ×2 (09:55→22:18)
[2018-08-24] MEDS: amLODIPine 5 MG TABLET PO SCH (10:03)
[2018-08-24] MEDS: SIMVASTATIN 20 MG TABLET PO SCH (22:21)
[2018-08-25 05:43] LABS: Basophils # (Auto) 0 K/mcL (0.0-0.3); Basophils % (Auto) 0.4 % (0.0-2.0); Eosinophils # (Auto) 0.1 K/mcL (0.0-0.7); Eosinophils % (Auto) 3.4 % (0.0-7.0); Granulocytes % (Auto) 55.6 % (38.0-78.0); Lymphocytes % (Auto) 24.6 % (15.5-49.0); Mean Cell Volume 90.4 fL (80.0-100.0); Mean Corpuscular HGB Conc 33.3 g/dL (31.0-36.0); Monocytes # (Auto) 0.6 K/mcL (0.1-0.9); Platelet Count 153 K/mcL (140-440); RBC 3.49 M/mcL (4.00-5.20); Red Cell Distribution Width 14.5 % (11.5-14.5)
[2018-08-25 06:07] LABS: ALT/SGPT 9 U/l (0-40); Albumin 2.8 gm/dL (3.2-5.2); Alkaline Phosphatase 79 U/L (39-117); Bilirubin,Direct < 0.2 mg/dL (0.0-0.3); Blood Urea Nitrogen 18 mg/dl (8-23); Gamma Glutamyl Transpeptidase 13 U/L (5-36)
[2018-08-25] MEDS: LEVOTHYROXINE 125 MCG TABLET PO SCH (07:17)
[2018-08-25] MEDS: 0.9 % SODIUM CHLORIDE 10 ML SYRINGE IV SCH (07:17)
[2018-08-25] MEDS: CARVEDILOL 3.125 MG TABLET PO SCH (07:54)
[2018-08-25] MEDS: oxyCODONE HCL 5 MG TABLET PO PRN (08:41)
--- NOTE | 2018-08-25 09:39 | Discharge Summary ---
Medical - DS: Prov Patient information: Note initiated : 08/25/18 at 9:35 am Service Date, if different from initiated Date: [] Patient: Lela Pressley 87 y/o F admitted on 08/22/18 for Multiple Falls, Weakness. Chief Complaint: [] Date of admission: 08/22/18 12:42 Discharge date: 08/25/18 Primary care physician: Emmanuel Ulrich Consults: 08/22/18 Consult to Physician [CONS] Stat Comment: Consulting Provider: Debi Shafer Reason For Exam: Physician to Consult Medical - DS: Meds - Discharge Medications Prescriptions: amLODIPine [Norvasc] 2.5 mg PO DAILY #30 tab Carvedilol [Coreg] 1.625 mg PO BIDCC #30 tab Active and Home Medications: Home Medications aspirin 81 mg tablet,delayed release 81 mg PO QDAY 06/26/17 [History Confirmed 08/22/18 Last Taken Unknown] loratadine 10 mg tablet 10 mg PO QDAY PRN #30 tab 10/01/17 [Rx Confirmed 08/22/18 Last Taken Unknown] D-Mannose powder or caps 2,000 mg PO .Daily #1 unit 12/09/17 [Rx Confirmed 08/22/18 Last Taken Unknown] cholecalciferol (vitamin D3) 5,000 unit capsule 5,000 unit PO QDAY 02/08/18 [History Confirmed 08/22/18 Last Taken Unknown] vitamins A,C,A-mkyt-qvyggk 14,320 unit-226 mg-200 unit capsule 1 cap PO BID 02/08/18 [History Confirmed 08/22/18 Last Taken Unknown] carvedilol 1.62 mg tablet PO BID #180 tab 04/15/18 [Rx Confirmed 08/22/18 Last Taken Unknown] levothyroxine 125 mcg tablet 125 mcg PO DAILY #90 tab 04/15/18 [Rx Confirmed 08/22/18 Last Taken Unknown] losartan 100 mg tablet 100 mg PO DAILY #90 tab 04/15/18 [Rx Confirmed 08/22/18 Last Taken Unknown] oxybutynin chloride ER 10 mg tablet,extended release 24 hr 10 mg PO QDAY #90 tab 04/15/18 [Rx Confirmed 08/22/18 Last Taken Unknown] simvastatin 20 mg tablet 20 mg PO HS #90 tab 04/15/18 [Rx Confirmed 08/22/18 Last Taken Unknown] hydroxyzine HCl 10 mg tablet 10 mg PO QHS PRN #30 tab MDD OAB 05/11/18 [Rx Confirmed 08/22/18 Last Taken Unknown] lorazepam 0.5 mg tablet 0.5 mg PO BID PRN #60 tab 06/29/18 [Rx Confirmed 08/22/18 Last Taken Unknown] imipramine 10 mg tablet See Rx Instructions PO BID 30 Days #0 tab 08/04/18 [Rx Confirmed 08/22/18 Last Taken Unknown] E2-E3 20/80- 1 Mg per gram See Rx Instructions .ROUTE .COMPLEX #60 g MDD recurrent UTI 08/05/18 [Rx Confirmed 08/22/18 Last Taken Unknown] Medical - DS: Hosp Hospital course: Discharge diagnosis * Left fifth rib fracture-continue pain management,/deep breathing exercises/incentive spirometer use * Recurrent falls ongoing PT OT/gait and safety eval. no evidence of orthostasis/arrhythmia, transfer to SNF for continued PT OT/gait training * Non complicated UTI -status post 3 days levofloxacin. * Intermittent bradycardia -Coreg dose lowered to half in light of bradycardia * History of hypertension-half dose Coreg/2.5 mg amlodipine, continue losartan * History of CHF currently well compensated * DM type II diet-controlled * History of CKD-stable Brief hospital course Ms. Pressley is a 87 year old F with history of recurrent urinary tract infections, congestive heart failure chronic kidney disease who lives by herself presents to the emergency room today for recurrent falls. The patient notes that she fell approximately 3 times over the last 1 week. Prior to that she was diagnosed I believe with influenza, and she did take her Tamiflu. 1 week before she notes she had the first fall when she was lying in bed she got up and tried to do something when she felt dizzy and fell down. She denies hitting her head or having any loss of consciousness. She denies any prodromal symptoms bowel or bladder incontinence. She had 2 more episodes of these falls last of one was yesterday. Yesterday when she fell she also had pain on the left side of the chest. Her son eventually brought her to the emergency room for further evaluation. Over the last few days the patient also admits to having increased frequency of urination. She admits to having recurrent urinary tract infections and feels like one is coming on. She denies any new headaches changes in vision difficulty in swallowing and hearing difficulties, denies any cough or shortness of breath admits to having chest pain with respirations on the left side, no nausea no vomiting no diarrhea, has increased frequency of urination no blood in the urine she admits to having some pain in the left knee, she denies any new skin rashes denies any anxiety or depression. She feels she is doing well at home and is able to care for herself she admits to having dizziness whenever she gets up which sounds like orthostatic dizziness and knows that she has to get up slowly but sometimes forgets. She would like to avoid going to [facility] if possible, her is presently in a [facility]. It seems however the family her son wants her to go to a rehab center and is concerned about her safety at home. On presentation to the emergency room patient was afebrile, hemodynamically stable. Labs reviewed her creatinine is around baseline, she does not have leukocytosis hemoglobin seems to be stable. Elect lites are stable her urine does suggest a UTI. Chest x-ray done showed that she has a fracture on the left rib on the fifth ray. Her pelvis x-ray left shoulder x-ray head CT are negative for any acute changes. Given the fact that she has had 3 episodes of fall, resulting in a wrist fra cture, she does have a UTI she is being admitted to the hospital for further management 08/23 Pt seen examined, no acute overnight issues, tolerating po diet well pain in the chest still present, needing IV pain meds Urine has gram neg bacillus, identification and sensitivity pending Transfer to [facility] Patient noted that she would not go to a rehab center 08/24-patient clinically improved. Resting comfortably. No overnight events except for intermittent bradycardia for which Coreg was held. No fever chills nausea vomiting. Intermittent productive cough with pain and hip fracture site. Ongoing PT OT. Patient resides at [facility] likely discharge once clinically stable. Anticipate discharge in 24 hours. 08/25-patient doing well. Persistent pleuritic pain due to rib fracture. Poor cough effort. Ongoing physical therapy. Discharging to SNF for continued post hospitalization rehabilitation/PT OT and gait training. Continue nutritional support Discharge diagnosis: . - Time Spent with Patient Total time spent providing and/or coordinating discharge services: Greater than 30 minutes Medical - DS: Exam - Constitutional Vitals: Vital Signs Temp Pulse Resp BP BP Pulse Ox 08/25/18 08:00 80 16 97 08/25/18 07:52 97.9 F 80 16 109/65 97 08/25/18 03:52 98 F 60 16 130/63 92 08/25/18 00:00 98.5 F 65 18 139/70 90 08/24/18 21:57 98.2 F 62 18 148/68 91 08/24/18 16:00 98.3 F 57 L 18 134/65 92 08/24/18 12:05 98.0 F 71 13 118/61 94 Intake and Output 08/24/18 08/25/18 08/25/18 21:59 05:59 13:59 Intake Total 300 Output Total 600 Balance 300 -600 Intake: Oral 300 Output: Void Amount 600 Other: Meal Breakfast Percent of Meal Consumed 100% Feeding Ability Independent Urine Appearance Clear Urine Color Bright Yellow Urine Odor Normal # Voids 2 Weight 174 lb 8 oz Medical - DS: Data Labs on day of discharge: Labs from last 24 hours 08/25/18 08/25/18 04:43 04:43 WBC 4.0 L RBC 3.49 L Hgb 10.5 L Hct 31.5 L MCV 90.4 MCH 30.1 MCHC 33.3 RDW 14.5 Plt Count 153 MPV 7.3 L Gran % 55.6 Lymph % (Auto) 24.6 [place] % (Auto) 16.0 H Eos % (Auto) 3.4 Baso % (Auto) 0.4 Gran # 2.2 Lymph # (Auto) 1.0 L [place] # (Auto) 0.6 Eos # (Auto) 0.1 Baso # (Auto) 0 Sodium 137 Potassium 4.5 Chloride 104 Carbon Dioxide 22 Anion Gap 11.0 BUN 18 Creatinine 1.4 H GFR Calculation 34 Glucose 99 Uric Acid 5.0 Calcium 8.5 L Phosphorus 2.4 L Magnesium 1.8 Total Bilirubin 0.4 Direct Bilirubin < 0.2 GGT 13 AST 14 ALT 9 Alkaline Phosphatase 79 Lactate Dehydrogenase 169 Total Protein 5.6 L Albumin 2.8 L Globulin 2.8 Albumin/Globulin Ratio 1.0 Triglycerides 127 Medical - DS: A/P - Patient/Caregiver Discharge Instructions Activity: as per physical therapy, increase activity as tolerated Diet: Low Sodium (2gm) Additional Instructions: Follow-up PCP in 5 days Continue aggressive incentive spirometer use/CoughAssist I recommend SNF physician to checkCBC BMP UA as a posthospital follow-up and Chest x-ray in 1 week. Continue aggressive bowel regimen to prevent constipation Continue fall precautions Continue aggressive PT OT evaluation and treatment at SNF. ST eval and treatment if indicated All meals on chair sitting upright at 90 degrees to prevent aspiration Return to ER if worsening fever chills SOB Refrain from smoking and alcohol Continue diet and activity as advised Discussed importance of medication adherence Please review medication list with patient prior to discharge Please schedule follow-up with PCP/Providers prior to discharge and provide printouts Prescriptions: amLODIPine [Norvasc] 2.5 mg PO DAILY #30 tab Carvedilol [Coreg] 1.625 mg PO BIDCC #30 tab - Problem Maintenance (1) Rib fracture Status: Acute Qualifiers: Laterality: left - Follow up Plan Follow up with: Emmanuel Ulrich MD [Primary Care Provider] - Disposition: [facility] Prognosis: Fair Rehab Potential: Fair I certify that the patient requires SNF services: Yes Overall status at discharge: patient is back to baseline Medical - DS: Qual - VTE Deep Vein Thrombosis/Pulmonary Embolism Present on Admission: No
[2018-08-25] MEDS: OXYBUTYNIN CHLORIDE 5 MG TAB.XL.24H PO SCH (10:17)
[2018-08-25] MEDS: IMIPRAMINE 25 MG TABLET PO SCH (10:17)
[2018-08-25] MEDS: ACETAMINOPHEN 500 MG TABLET PO SCH (10:18)
[2018-08-25] MEDS: VIT A,C & E/LUTEIN/MINERALS TABLET PO SCH (10:19)
[2018-08-25] MEDS: VITAMIN D3 5,000 UNIT CAPSULE PO SCH (10:19)
[2018-08-25] MEDS: LOSARTAN 50 MG TABLET PO SCH (10:20)
[2018-08-25] MEDS: ASPIRIN 81 MG TAB.CHEW PO SCH (10:20)
[2018-08-25] MEDS: amLODIPine 5 MG TABLET PO SCH (10:20)
[2018-08-25] MEDS: HEPARIN 5,000 UNIT/ML VIAL SQ SCH (10:21)
== END 2018-08-25 11:20 | DRG 206 ==
LOC: ED 07:54 → ICU 12:42 → MEDSUR 08-23 11:20
PROVIDERS: ADMIT Internal Medicine; ATTEND Internal Medicine